=== PATIENT | female | born 1940 | race Caucasian/White ===

== ENCOUNTER 2017-09-22 18:54 | Emergency (ER) | payer OTHER ==
--- NOTE | 2017-09-22 20:48 | RAD REPORT ---
EXAM DESCRIPTION: RAD - Forearm Left - 09/22/2017 8:11 pm CLINICAL HISTORY: Deformity;Pain COMPARISON: None FINDINGS: Fracture of the distal radial metaphysis is noted with mild impaction and lateral translat ion. Ulnar styloid fracture is also suspected. A dislocation is not seen.
[2017-09-22] MEDS ORDERED: FENTANYL CITR 100 MCG/2 ML ONE (21:27)
--- NOTE | 2017-09-22 21:36 | ER ---
Nurse's Notes [facility] Name: Toya Kaur Age: 77 yrs Sex: Female : 1940 Arrival Date: 09/22/2017 Time: 18:57 Bed 20 Private MD: out of town, doctor Diagnosis: Fall on same level from slipping, tripping and stumbling;Unspecified fracture of left forearm;Tachycardia, unspecified Presentation: 09/22 19:01 Presenting complaint: Patient states: "My drive way is uneven and I just tripped over a aj1 crack and fell" Reports left arm pain. 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 Care prior to arrival: None. Mechanism of Injury: Fall from standing position. Trauma event details: Injury occurred in the [facility]. 19:01 Acuity: WILMER 3 aj1 19:01 Method Of Arrival: Ambulatory aj1 19:06 Transition of care: patient was not received from another setting of care. Onset of aj1 symptoms was September 22, 2017. Risk Assessment: Do you want to hurt yourself or someone else? Patient reports no desire to harm self or others. Initial Sepsis Screen: Does the patient meet any 2 criteria? No. Patient's initial sepsis screen is negative. Does the patient have a suspected source of infection? No. Patient's initial sepsis screen is negative. Trauma Activation: Not Applicable Physician: ED Physician; Name: ; Notified At: ; Arrived At: Physician: General Surgeon; Name: ; Notified At: ; Arrived At: Physician: Radiology; Name: ; Notified At: ; Arrived At: Physician: Respiratory; Name: ; Notified At: ; Arrived At: Physician: Lab; Name: ; Notified At: ; Arrived At: Historical: - Allergies: 19:06 Latex, Natural Rubber; aj1 - Home Meds: 19:10 gabapentin 600 mg oral tab 1 tab 3 times per day [Active]; doxepin 75 mg Oral cap 1 cap aj1 2 times per day [Active]; losartan-hydrochlorothiazide 100-12.5 mg oral tab 1 tab once daily [Active]; simvastatin 40 mg Oral tab 1 tab once daily [Active]; levothyroxine 75 mcg tab 1 tab once daily [Active]; furosemide 40 mg Oral tab 1 tab once daily [Active]; latanoprost ophthalmic ophthalmic [Active]; aspirin 81 mg Oral chew 1 tab once daily [Active]; - PMHx: 19:10 Hyperlipidemia; Hypertension; Hypothyroidism; aj1 - Immunization history: Last tetanus immunization: unknown. - Social history:: Smoking status: Patient/guardian denies using tobacco. - Ebola Screening: : Patient denies travel to an Ebola-affected area in the 21 days before illness onset. Screenin:01 Abuse screen: Denies threats or abuse. Denies injuries from another. Tuberculosis aj1 screening: No symptoms or risk factors identified. 19:17 Fall Risk Fall in past 12 months (25 points). No IV (0 pts). Ambulatory Aid- None/Bed jd3 Rest/Nurse Assist (0 pts). Gait- Normal/Bed Rest/Wheelchair (0 pts) Mental Status- Oriented to own ability (0 pts). Total Dos Santos Fall Scale indicates Low Risk Score (25-44 pts). Fall prevention measures have been instituted. Side Rails Up X 2 Placed close to Nursing Station Frequent Obs/Assesments occuring Family Present and informed to notify staff if they need to leave bedside. 19:17 Nutritional screening: No deficits noted. jd3 Assessment: 19:01 General: Appears in no apparent distress. uncomfortable, Behavior is calm, cooperative, aj1 appropriate for age. Pain: Complains of pain in left wrist Pain currently is 7 out of 10 on a pain scale. Neuro: Level of Consciousness is awake, alert, obeys commands. Cardiovascular: Patient's skin is warm and dry. Respiratory: Airway is patent Respiratory effort is even, unlabored, Respiratory pattern is regular, symmetrical. Musculoskeletal: Capillary refill < 3 seconds, in left fingers. Range of motion: limited in left wrist Bony deformity noted of left wrist Swelling present in left wrist. 19:17 General: Appears in no apparent distress. uncomfortable, Behavior is calm, cooperative, jd3 appropriate for age. Pain: Complains of pain in left wrist Pain currently is 7 out of 10 on a pain scale. Quality of pain is described as sharp. Neuro: Level of Consciousness is awake, alert, obeys commands, Oriented to person, place, time, situation, Appropriate for age Pupils are PERRLA. Cardiovascular: Capillary refill < 3 seconds Patient's skin is warm and dry. Respiratory: Airway is patent Respiratory effort is even, unlabored, Respiratory pattern is regular, symmetrical. GI: No signs and/or symptoms were reported involving the gastrointestinal system. : No signs and/or symptoms were reported regarding the genitourinary system. EENT: No signs and/or symptoms were reported regarding the EENT system. Derm: Skin is intact, Skin is dry, Skin is normal, Skin temperature is warm. Musculoskeletal: Capillary refill < 3 seconds, in left fingers. Range of motion: limited in left wrist Bony deformity noted of left wrist Swelling present in left wrist. 20:27 Reassessment: Patient appears in no apparent distress at this time. Patient and/or jd3 family updated on plan of care and expected duration. Pain level reassessed. Patient is alert, oriented x 3, equal unlabored respirations, skin warm/dry/pink. waiting on results of diagnostic tests. Vital Signs: 19:01 BP 116 / 71; Pulse 125; Resp 20; Temp 98.7; Pulse Ox 93% on R/A; Weight 104.33 kg (R); aj1 Height 5 ft. 6 in. (167.64 cm) (R); Pain 7/10; 20:27 BP 127 / 71; Pulse 118; Resp 19 S; Pulse Ox 97% on R/A; jd3 21:34 BP 125 / 84; Pulse 119; Resp 19 S; Pulse Ox 95% on R/A; jd3 19:01 Body Mass Index 37.12 (104.33 kg, 167.64 cm) aj1 Cindy Coma Score: 19:01 Eye Response: spontaneous(4). Verbal Response: oriented(5). Motor Response: obeys aj1 commands(6). Total: 15. Trauma Score (Adult): 19:01 Eye Response: spontaneous(1); Verbal Response: oriented(1); Motor Response: obeys aj1 commands(2); Systolic BP: > 89 mm Hg(4); Respiratory Rate: 10 to 29 per min(4); Gilbert Score: 15; Trauma Score: 12 ED Course: 18:57 Patient arrived in ED. mr 18:57 out of town, doctor is Private Physician. mr 19:01 Patient has correct armband on for positive identification. aj1 19:04 Triage completed. aj1 19:06 Arm band placed on Patient placed in an exam room. aj1 19:08 Taya Estrada FNP-C is PHCP. snw 19:08 Kris Brice MD is Attending Physician. snw 19:09 Timmy Lopez, RN is Primary Nurse. jd3 20:08 X-ray completed. Portable x-ray completed in exam room. Patient tolerated procedure jb2 well. 20:12 Forearm Left XRAY In Process Unspecified. EDMS 21:34 No provider procedures requiring assistance completed. Patient did not have IV access jd3 during this emergency room visit. 21:35 Martínez Cochran MD is Referral Physician. snw 21:35 Orthoglass splint: Sugar tong splint applied on left arm. placed by [employer]. jd3 Administered Medications: 21:33 Drug: fentaNYL (PF) 50 mcg Route: IM; Site: right deltoid; jd3 21:53 Follow up: Response: No adverse reaction jd3 Outcome: 21:35 Discharge ordered by MD. snw 21:57 Discharged to home ambulatory, with family. jd3 21:57 Condition: stable 21:57 Discharge instructions given to patient, family, Instructed on discharge instructions, follow up and referral plans. medication usage, Demonstrated understanding of instructions, follow-up care, medications, Prescriptions given X 2. 21:58 Patient left the ED. jd3 Signatures: Dispatcher [employer] EDMS Leslie Gomez, RN RN aj1 Taya Estrada FNP-C FNP-Sydni Cruz Mayela Mendozae jb2 Timmy Lopez, RN RN jd3
--- NOTE | 2017-09-22 21:36 | EDPHYS ---
Physician Documentation [facility] Name: Toya Kaur Age: 77 yrs Sex: Female : 1940 Arrival Date: 09/22/2017 Time: 18:57 Bed 20 Private MD: out of town, doctor ED Physician Kris Brice HPI: 09/22 19:59 This 77 yrs old Female presents to ER via Ambulatory with complaints of Fall snw Injury, Wrist Injury. 19:59 Details of fall: The patient fell from an upright position, while walking. Onset: The snw symptoms/episode began/occurred suddenly, just prior to arrival. Associated injuries: The patient sustained left arm, contusion, decreased range of motion, deformity, painful injury, swelling. Severity of symptoms: At their worst the symptoms were moderate. The patient has not experienced similar symptoms in the past. Historical: - Allergies: 19:06 Latex, Natural Rubber; aj1 - Home Meds: 19:10 gabapentin 600 mg oral tab 1 tab 3 times per day [Active]; doxepin 75 mg Oral cap 1 cap aj1 2 times per day [Active]; losartan-hydrochlorothiazide 100-12.5 mg oral tab 1 tab once daily [Active]; simvastatin 40 mg Oral tab 1 tab once daily [Active]; levothyroxine 75 mcg tab 1 tab once daily [Active]; furosemide 40 mg Oral tab 1 tab once daily [Active]; latanoprost ophthalmic ophthalmic [Active]; aspirin 81 mg Oral chew 1 tab once daily [Active]; - PMHx: 19:10 Hyperlipidemia; Hypertension; Hypothyroidism; aj1 - Immunization history: Last tetanus immunization: unknown. - Social history:: Smoking status: Patient/guardian denies using tobacco. - Ebola Screening: : Patient denies travel to an Ebola-affected area in the 21 days before illness onset. ROS: 19:58 Constitutional: Negative for fever, chills, and weight loss, Eyes: Negative for injury, snw pain, redness, and discharge, ENT: Negative for injury, pain, and discharge, Neck: Negative for injury, pain, and swelling, Cardiovascular: Negative for chest pain, palpitations, and edema, Respiratory: Negative for shortness of breath, cough, wheezing, and pleuritic chest pain, Abdomen/GI: Negative for abdominal pain, nausea, vomiting, diarrhea, and constipation, Back: Negative for injury and pain, : Negative for injury, bleeding, discharge, and swelling, Skin: Negative for injury, rash, and discoloration, Neuro: Negative for headache, weakness, numbness, tingling, and seizure. 19:58 MS/extremity: Positive for injury or acute deformity, deformity, swelling, tenderness, of the left lower arm. Exam: 19:55 Constitutional: This is a well developed, well nourished patient who is awake, alert, snw and in no acute distress. Head/Face: Normocephalic, atraumatic. Eyes: Pupils equal round and reactive to light, extra-ocular motions intact. Lids and lashes normal. Conjunctiva and sclera are non-icteric and not injected. Cornea within normal limits. Periorbital areas with no swelling, redness, or edema. ENT: Nares patent. No nasal discharge, no septal abnormalities noted. Tympanic membranes are normal and external auditory canals are clear. Oropharynx with no redness, swelling, or masses, exudates, or evidence of obstruction, uvula midline. Mucous membranes moist. Neck: Trachea midline, no thyromegaly or masses palpated, and no cervical lymphadenopathy. Supple, full range of motion without nuchal rigidity, or vertebral point tenderness. No Meningismus. Chest/axilla: Normal chest wall appearance and motion. Nontender with no deformity. No lesions are appreciated. 19:55 Respiratory: Lungs have equal breath sounds bilaterally, clear to auscultation and percussion. No rales, rhonchi or wheezes noted. No increased work of breathing, no retractions or nasal flaring. Abdomen/GI: Soft, non-tender, with normal bowel sounds. No distension or tympany. No guarding or rebound. No evidence of tenderness throughout. Back: No spinal tenderness. No costovertebral tenderness. Full range of motion. Skin: Warm, dry with normal turgor. Normal color with no rashes, no lesions, and no evidence of cellulitis. Neuro: Awake and alert, GCS 15, oriented to person, place, time, and situation. Cranial nerves II-XII grossly intact. Motor strength 5/5 in all extremities. Sensory grossly intact. Cerebellar exam normal. Normal gait. Psych: Awake, alert, with orientation to person, place and time. Behavior, mood, and affect are within normal limits. 19:55 Cardiovascular: Rate: tachycardic, Rhythm: regular, Pulses: no pulse deficits are appreciated, Edema: is not appreciated. 19:55 Musculoskeletal/extremity: Extremities: grossly normal except: noted in the left distal forearm: decreased ROM, deformity, pain, swelling, ROM: no acute changes, Pulses: are normal with no appreciated deficits, Sensation intact. Vital Signs: 19:01 BP 116 / 71; Pulse 125; Resp 20; Temp 98.7; Pulse Ox 93% on R/A; Weight 104.33 kg (R); aj1 Height 5 ft. 6 in. (167.64 cm) (R); Pain 7/10; 20:27 BP 127 / 71; Pulse 118; Resp 19 S; Pulse Ox 97% on R/A; jd3 21:34 BP 125 / 84; Pulse 119; Resp 19 S; Pulse Ox 95% on R/A; jd3 19:01 Body Mass Index 37.12 (104.33 kg, 167.64 cm) aj1 [place] Coma Score: 19:01 Eye Response: spontaneous(4). Verbal Response: oriented(5). Motor Response: obeys aj1 commands(6). Total: 15. Trauma Score (Adult): 19:01 Eye Response: spontaneous(1); Verbal Response: oriented(1); Motor Response: obeys aj1 commands(2); Systolic BP: > 89 mm Hg(4); Respiratory Rate: 10 to 29 per min(4); Cindy Score: 15; Trauma Score: 12 MDM: 19:08 Patient medically screened. snw 21:38 Data reviewed: vital signs, nurses notes. Data interpreted: Pulse oximetry: on room air snw is 95 %. Interpretation: acceptable. Counseling: I had a detailed discussion with the patient and/or guardian regarding: the historical points, exam findings, and any diagnostic results supporting the discharge/admit diagnosis, radiology results, the need for outpatient follow up, to return to the emergency department if symptoms worsen or persist or if there are any questions or concerns that arise at home. Special discussion: Based on the patient's history, exam and DX evaluation, there is no indication for emergent intervention or inpatient TX. It is understood by the patient/guardian that if the SXs persist or worsen they need to return immediately for re-evaluation. Based on the history and exam findings, there is no indication for further emergent testing or inpatient evaluation. I discussed with the patient/guardian the need to see the orthopedic surgeon for further evaluation of the symptoms. I discussed with the patient/guardian the need to see the primary care provider for further evaluation of the symptoms. 09/22 19:50 Order name: Forearm Left XRAY; Complete Time: 20:54 snw 09/22 19:50 Order name: EKG; Complete Time: 19:51 snw 09/22 19:50 Order name: EKG - Nurse/Tech; Complete Time: 20:29 snw 09/22 21:03 Order name: Sugar Tong Forearm Splint; Complete Time: 21:45 snw 09/22 21:03 Order name: Sling; Complete Time: 21:36 snw Administered Medications: 21:33 Drug: fentaNYL (PF) 50 mcg Route: IM; Site: right deltoid; jd3 21:53 Follow up: Response: No adverse reaction jd3 Disposition: 09/23 03:00 Co-signature as Attending Physician, Kris Brice MD. rn Disposition: 09/22/17 21:35 Discharged to Home. Impression: Fall on same level from slipping, tripping and stumbling, Unspecified fracture of left forearm, Tachycardia, unspecified. - Condition is Stable. - Discharge Instructions: Cast or Splint Care, Adult, Forearm Fracture, Head Injury, Adult, Fall Prevention in the Home, Cryotherapy, How to Use a Sling. - Prescriptions for Tylenol- Codeine #3 300-30 mg Oral Tablet - take 2 tablets by ORAL route every 6 hours As needed; 16 tablet. orphenadrine citrate 100 mg Oral Tablet Sustained Release - take 1 tablet by ORAL route 2 times per day As needed; 20 tablet. - Medication Reconciliation Form, Thank You Letter, Antibiotic Education, Prescription Opioid Use form. - Follow up: Martínez Cochran MD; When: 5 - 6 days; Reason: If symptoms return, Recheck today's complaints, Continuance of care. Signatures: Dispatcher [employer] Leslie Roy RN RN aj1 Taya Estrada, MEDIA RELATIONS INTERN-C MEDIA RELATIONS INTERN-Csnw Kris Brice MD MD rn Davies, Jonathon, RN RN jd3 Corrections: (The following items were deleted from the chart) 09/22 21:58 21:35 09/22/2017 21:35 Discharged to Home. Impression: Fall on same level from jd3 slipping, tripping and stumbling; Unspecified fracture of left forearm; Tachycardia, unspecified. Condition is Stable. Forms are Medication Reconciliation Form, Thank You Letter, Antibiotic Education, Prescription Opioid Use. Follow up: Martínez Cochran; When: 5 - 6 days; Reason: If symptoms return, Recheck today's complaints, Continuance of care. snw
--- NOTE | 2017-09-23 10:35 | EKG ---
Test Date: 2017-09-22 Test Time: 20:12:53 Material Planner: MARICEL MEASUREMENT RESULTS: Intervals: Rate: 115 [place]: 202 QRSD: 86 QT: 332 QTc: 459 [place]: P: 61 AZ: 202 QRS: 66 T: 39 INTERPRETIVE STATEMENTS: Sinus tachycardia Low voltage QRS Nonspecific ST and T wave abnormality Abnormal ECG No previous ECG available for comparison Electronically Signed On 09-23-17 10:34:00 CDT by Marvin Owusu
== END 2017-09-22 21:58 | disposition home or self-care (01) ==
LOC: ER 18:54
DX: S52.502A Unspecified fracture of the lower end of left radius, initial encounter for closed fracture (principal); W01.0XXA Fall on same level from slipping, tripping and stumbling without subsequent striking against object, initial encounter; Y93.9 Activity, unspecified; Y92.093 Driveway of other non-institutional residence as the place of occurrence of the external cause; R00.0 Tachycardia, unspecified; E78.5 Hyperlipidemia, unspecified; I10 Essential (primary) hypertension; E03.9 Hypothyroidism, unspecified; Z91.040 Latex allergy status
CPT/HCPCS: 73090; 93005; 96372; 99284; J3010

== ENCOUNTER 2022-06-21 08:19 | Inpatient (IN) | payer OTHER ==
--- OUTSIDE RECORDS SUMMARY | 2022-06-21 08:26 | XMS REPORT | Continuity of Care Document ---
:1940 Author Organization [facility] t Address [address] [place] [address] [address] [place] [address] Care Team Providers Name Role Phone Adilson Dhaliwal MD Primary Care Physician [phone] Divine Chan Attending Clinician Unavailable Mady Dhillon Attending Clinician Unavailable Zahra Vu Attending Clinician Unavailable Adilson Dhaliwal MD Attending Clinician Patrick Watt MD Attending Clinician ADILSON DHALIWAL Attending Clinician Unavailable LUCIUS EMERY Attending Clinician Unavailable Payers Payer Name Policy Type Policy Number Effective Date Expiration Date S jamil [place] [id number] 2022 Common HEALTHCARE 00:00:00 [facility] - [facility] AETNA MEDICARE C1 [id number] 2020 Common PPO 00:00:00 [facility] AETNA MEDICARE [id number] 2017 ADV 00:00:00 Problems Condition Condition Condition Status Onset Resolution Last Treating Co mments Source Name Details Category Date Date Treatment Clinician Date Prediabete Prediabete Disease Active 2020-0 U nivers s s 8-12 ity of 00:00: [address] Acute pain Acute pain Disease Active 2020-0 U nivers of right of right 02 ity of shoulder shoulder 00:00: [address] Urinary Urinary Disease Active 2020-0 Univers frequency frequency 8-02 ity of 00:00: [place] [facility] Chronic Chronic Disease Active Univers insomnia insomnia 7-30 ity of :: [place] [facility] Branch Hyperchole Hyperchole Disease Active U nivers sterolemia sterolemia it y of [facility] Osteoporos Osteoporos Disease Active U nivers is is ity of [facility] Eczema Eczema Disease Active Univers ity of [facility] Annual Encounter Problem Common wellness for Spirit visit wellness - [facility] [place] [id number] History of Problem Co mmon colon [facility] polyps [facility] [id number] Abnormal Problem Comm on mammogram [facility] [id number] Stage 3b Problem Comm on chronic [facility] kidney - [facility] disease (CKD) 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 stage, Medical unspecifie Center d laterality [id number] Dry eyes Problem Comm on Spirit [facility] Hypothyroi Hypothyroi Problem C ommon dism dism, Spirit unspecifie - [facility] d type [facility] Allergies, Adverse Reactions, Alerts Allergy Allergy Status Severity Reaction(s) Onset Inactive Treating Comm ents Source Name Type Date Date Clinician Latex, Propensi Active Hives Univers Natural ty to 09-24 ity of Rubber adverse 00:00: [place] reaction 00 Medical Branch LATEX, Drug Active Hives Univers NATURAL Class 09-24 ity of RUBBER 00:00: [place] 00 [facility] [place] Latex Latex Active Unknown Common Spirit [facility] Social History Social Habit Start Date Stop Date Quantity Comments Source History of Common Spirit - Tobacco Use [facility] Sex Assigned At Common Sp yadira - [facility] Alcohol intake 2020-03-21 2020-03-21 Current University of 00:00:00 00:00:00 non-drinker of [facility] alcohol Branch (finding) Tobacco use and 2017-10-05 2017-10-05 Never used Universit y of exposure 00:00:00 00:00:00 [place] [facility] [place] Smoking Status Start Date Stop Date Source Never Smoker [facility] Medications Ordered Filled Start Stop Current Ordering Indication Dosage Frequency Signature Comments Components Source Medication Medication Date Date Medication? Clinician (SIG) Name Name DOXEPIN 75 2020-02 Yes [id number] TAKE 1 U nivers mg capsule 1-09 CAPSULE BY ity of 00:00: MOUTH [place] TWICE Medical DAILY Branch DOXEPIN 75 2020-02 Yes [id number] TAKE 1 U nivers mg capsule 1-09 CAPSULE BY ity of 00:00: MOUTH [place] [address] TWICE Medical DAILY Branch MUPIROCIN 2 2020-02 Yes [id number] APPLY TO Univers % ointment 1-02 AFFECTED ity o f 00:00: AREA(S) [place] [address] THREE Medical TIMES Branch DAILY MUPIROCIN 2 2020-02 Yes [id number] APPLY TO Univers % ointment 1-02 AFFECTED ity o f 00:00: [facility](S) [place] [address] THREE Medical TIMES Branch DAILY MUPIROCIN 2 2020-02 Yes [id number] APPLY TO Univers % ointment 1-02 AFFECTED ity o f 00:00: [facility]() [place] [address] THREE Medical TIMES Branch DAILY MUPIROCIN 2 Yes [id number] APPLY TO Univers % ointment 9-21 AFFECTED ity o f 00:00: [facility]() [place] [address] THREE Medical TIMES Branch DAILY MUPIROCIN 2 2020-2020- No [id number] APPLY TO Univers % ointment 9-21 11-02 AFFECTED ity of 00:00: 00:00 [facility]() [place] 00 :00 THREE Medical TIMES Branch DAILY MUPIROCIN 2 2020-2020- No [id number] APPLY TO Univers % ointment 8-20 09-21 AFFECTED ity of 00:00: 00:00 [facility]() [place] 00 :00 [facility] Medical TIMES Branch DAILY DOXEPIN 75 Yes [id number] TAKE 1 U nivers mg capsule 6-16 CAPSULE BY ity of 00:00: MOUTH TWICE Medical DAILY Branch DOXEPIN 75 2020-0 Yes [id number] TAKE 1 U nivers mg capsule 6-16 CAPSULE BY ity of 00:00: MOUTH [place] TWICE Medical DAILY Branch DOXEPIN 75 2020-0 1- No [id number] TAKE 1 Univers mg capsule 6-16 11-09 CAPSULE BY it y of 00:00: 00:00 MOUTH [place] 00 :00 TWICE Medical DAILY Branch SIMVASTATIN 2020-0 Yes [id number] TAKE 1 Univers 40 mg 6-14 TABLET BY ity of tablet 00:00: MOUTH AT [place] BEDTIME Medical Branch LEVOTHYROXI 2020-0 Yes [id number] TAKE 1 Univers NE 75 mcg 6-14 TABLET BY ity o f tablet 00:00: MOUTH [place] EVERY DAY Medical Branch SIMVASTATIN 2020-0 Yes [id number] TAKE 1 Univers 40 mg 6-14 TABLET BY ity of tablet 00:00: MOUTH AT [place] BEDTIME Medical Branch LEVOTHYROXI 2020-0 Yes [id number] TAKE 1 Univers NE 75 mcg 6-14 TABLET BY ity o f tablet 00:00: MOUTH [place] EVERY DAY Medical Branch SIMVASTATIN 2020-0 Yes [id number] TAKE 1 Univers 40 mg 6-14 TABLET BY ity of tablet 00:00: MOUTH AT [place] BEDTIME Medical Branch LEVOTHYROXI 2020-0 Yes [id number] TAKE 1 Univers NE 75 mcg 6-14 TABLET BY ity o f tablet 00:00: MOUTH [place] EVERY DAY Medical Branch SIMVASTATIN 2020-0 Yes [id number] TAKE 1 Univers 40 mg 6-14 TABLET BY ity of tablet 00:00: MOUTH AT [place] BEDTIME Medical Branch LEVOTHYROXI 2020-0 Yes [id number] TAKE 1 Univers NE 75 mcg 6-14 TABLET BY ity o f tablet 00:00: MOUTH [place] EVERY DAY Medical Branch IBANDRONATE 2020-0 Yes [id number] TAKE 1 Univers 150 mg 2-20 TABLET BY ity of tablet 00:00: MOUTH ONE [place] MONTHLY Medical Branch LOSARTAN 2020-0 Yes [id number] TAKE HALF Univers 100 mg 2-20 A TABLET ity of tablet 00:00: BY MOUTH [place] TWICE Medical DAILY Branch FUROSEMIDE 2020-0 Yes [id number] TAKE 1 U nivers 40 mg 2-20 TABLET BY ity of tablet 00:00: MOUTH [place] EVERY DAY Medical Branch IBANDRONATE 202-0 Yes [id number] TAKE 1 Univers 150 mg 2-20 TABLET BY ity of tablet 00:00: [facility] MONTHLY Medical Branch LOSARTAN 202-0 Yes [id number] TAKE HALF Univers 100 mg 2-20 A TABLET ity of tablet 00:00: BY MOUTH [place] TWICE Medical DAILY Branch FUROSEMIDE 202-0 Yes [id number] TAKE 1 U nivers 40 mg 2-20 TABLET BY ity of tablet 00:00: MOUTH [place] EVERY DAY Medical Branch IBANDRONATE 2020-0 Yes [id number] TAKE 1 Univers 150 mg 2-20 TABLET BY ity of tablet 00:00: MOUTH [facility] MONTHLY Medical Branch LOSARTAN 2020-0 Yes [id number] TAKE HALF Univers 100 mg 2-20 A TABLET ity of tablet 00:00: BY MOUTH [place] TWICE Medical DAILY Branch FUROSEMIDE 2020-0 Yes [id number] TAKE 1 U nivers 40 mg 2-20 TABLET BY ity of tablet 00:00: [facility] EVERY DAY Medical Branch IBANDRONATE 2020-0 Yes [id number] TAKE 1 Univers 150 mg 2-20 TABLET BY ity of tablet 00:00: MOUTH [facility] MONTHLY Medical Branch LOSARTAN 2020-0 Yes [id number] TAKE HALF Univers 100 mg 2-20 A TABLET ity of tablet 00:00: BY MOUTH [place] TWICE Medical DAILY Branch FUROSEMIDE 2020-0 Yes [id number] TAKE 1 U nivers 40 mg 2-20 TABLET BY ity of tablet 00:00: [facility] EVERY DAY Medical Branch FOLIC ACID 2020-0 Yes Take by [facility] ers ORAL 03-16 mouth. ity of 10:19: [address] Branch calcium 0 Yes Take by Univers carbonate/v - mouth. ity of itamin D2 10:19: [place] (CALCIUM 49 Medical 600 + D Branch ORAL) BIOTIN ORAL Yes Take by Uni vers 03-16 mouth. ity of 10:19: [address] Branch FOLIC ACID 0 Yes Take by Univ ers ORAL - mouth. ity of 10:19: [address] Branch calcium Yes Take by Univers carbonate/v - mouth. ity of itamin D2 10:19: [place] (CALCIUM 49 Medical 600 + D Branch ORAL) BIOTIN ORAL Yes Take by Uni vers 03-16 mouth. ity of 10:19: [place] [address] Medical Branch FOLIC ACID Yes Take by Univ ers ORAL 03-16 mouth. ity of 10:19: [place] [address] Medical Branch calcium Yes Take by Univers carbonate/v 03-16 mouth. ity of itamin D2 10:19: [place] (CALCIUM 49 Medical 600 + D Branch ORAL) BIOTIN ORAL Yes Take by Uni vers 03-16 mouth. ity of 10:19: [place] [address] Medical Branch FOLIC ACID Yes Take by Univ ers ORAL 03-16 mouth. ity of 10:19: [place] [address] Medical Branch calcium Yes Take by Univers carbonate/v 03-16 mouth. ity of itamin D2 10:19: [place] (CALCIUM 49 Medical 600 + D Branch ORAL) BIOTIN ORAL Yes Take by Uni vers 03-16 mouth. ity of 10:19: [place] [address] Medical Branch CLOBETASOL Yes [id number] APPLY TO Univers 0.05 % 1-19 AFFECTED ity of cream 00:00: AREA(S) [place] 00 TWICE Medical DAILY Branch CLOBETASOL Yes [id number] APPLY TO Univers 0.05 % 1-19 AFFECTED ity of cream 00:00: AREA(S) [place] 00 TWICE Medical DAILY Branch CLOBETASOL Yes [id number] APPLY TO Univers 0.05 % 1-19 AFFECTED ity of cream 00:00: AREA(S) [place] 00 TWICE Medical DAILY Branch CLOBETASOL Yes [id number] APPLY TO Univers 0.05 % 1-19 AFFECTED ity of cream 00:00: AREA(S) [place] 00 TWICE Medical DAILY Branch ferrous 0 Yes Take by Univers sulfate 7-30 mouth ity of (IRON, 15:02: daily. [place] FERROUS 39 Medical SULFATE,) Branch 325 mg (65 mg iron) tablet aspirin 81 2019-0 Yes 81mg Take 81 mg U nivers mg EC 7-30 by mouth ity of tablet 15:02: daily. [place] 39 Medical Branch ferrous 2020-0 Yes Take by Univers sulfate 7-30 mouth ity of (IRON, 15:02: daily. [place] FERROUS 39 Medical SULFATE,) Branch 325 mg (65 mg iron) tablet aspirin 81 2019-0 Yes 81mg Take 81 mg U nivers mg EC 7-30 by mouth ity of tablet 15:02: daily. [address] Branch ferrous 2020-0 Yes Take by Univers sulfate 7-30 mouth ity of (IRON, 15:02: daily. [place] [address] Medical SULFATE,) Branch 325 mg (65 mg iron) tablet aspirin 81 2020-0 Yes 81mg Take 81 mg U nivers mg EC 7-30 by mouth ity of tablet 15:02: daily. [address] Branch ferrous 2020-0 Yes Take by Univers sulfate 7-30 mouth ity of (IRON, 15:02: daily. [place] FERROUS Medical SULFATE,) Branch 325 mg (65 mg iron) tablet aspirin 81 2020-0 Yes 81mg Take 81 mg U nivers mg EC 7-30 by mouth ity of tablet 15:02: daily. [address] HYDROcodone 2017-0 Yes 1{tbl} Take 1 Un ese -acetaminop 7-16 tablet by ity of hen 7.5-325 00:00: mouth [place] mg per 00 every 4 Medical tablet (four) Branch hours. HYDROcodone 2017-0 Yes 1{tbl} Take 1 Un ese -acetaminop 7-16 tablet by ity of hen 7.5-325 00:00: mouth [place] mg per 00 every 4 Medical tablet (four) Branch hours. HYDROcodone 2018-0 Yes 1{tbl} Take 1 Un ese -acetaminop 7-16 tablet by ity of hen 7.5-325 00:00: mouth [place] mg per 00 every 4 Medical tablet (four) Branch hours. HYDROcodone 2017-0 Yes 1{tbl} Take 1 Un ese -acetaminop 7-16 tablet by ity of hen 7.5-325 00:00: mouth [place] mg per 00 every 4 Medical tablet (four) Branch hours. latanoprost 2017-0 Yes 1[drp] Place 1 U nivers 0.005 % 6-18 Drop in ity of ophthalmic 00:00: right eye [place] drops 00 at Medical bedtime. Branch latanoprost 2017-0 Yes 1[drp] Place 1 U nivers 0.005 % 6-18 Drop in ity of ophthalmic 00:00: right eye [place] drops 00 at Medical bedtime. Branch latanoprost 2017-0 Yes 1[drp] Place 1 U nivers 0.005 % 6-18 Drop in ity of ophthalmic 00:00: right eye [place] drops 00 at Medical bedtime. Branch latanoprost Yes 1[drp] Place 1 U nivers 0.005 % 6-18 Drop in ity of ophthalmic 00:00: right eye [place] drops 00 at Medical bedtime. Branch RESTASIS Yes 1[drp] Place 1 Univ ers 0.05 % 5-21 Drop in ity of ophthalmic 00:00: both eyes [place] drops 00 every 12 Medical (twelve) Branch hours. RESTASIS Yes 1[drp] Place 1 Univ ers 0.05 % 5-21 Drop in ity of ophthalmic 00:00: both eyes [place] drops 00 every 12 Medical (twelve) Branch hours. RESTASIS Yes 1[drp] Place 1 Univ ers 0.05 % 5-21 Drop in ity of ophthalmic 00:00: both eyes [place] drops 00 every 12 Medical (twelve) Branch hours. RESTASIS Yes 1[drp] Place 1 Univ ers 0.05 % 5-21 Drop in ity of ophthalmic 00:00: both eyes [place] drops 00 every 12 Medical (twelve) Branch hours. Doxepin HCl Doxepin HCl No Doxepin 75 MG 75 MG HCl 75 MG Aspirin 81 Aspirin 81 No 1{table QD Aspirin 81 81 MG 81 MG t} 81 MG HYDROcodone HYDROcodone No HYDROcodon -Acetaminop -Acetaminop e-Acetamin hen 7.5-325 hen 7.5-325 ophen MG MG 7.5-325 MG Levothyroxi Levothyroxi No Levothyrox ne Sodium ne Sodium ine Sodium 75 MCG 75 MCG 75 MCG Latanoprost Latanoprost No Latanopros 0.005 % 0.005 % t 0.005 % Cranberry Cranberry No Cranberry Mupirocin 2 Mupirocin 2 No 1{appli TID Mupirocin % % cation_ 2 % to_affe cted_ar ea} Simvastatin Simvastatin No Simvastati 40 MG 40 MG n 40 MG Macy 3 Macy 3 No Macy 3 Mupirocin 2 Mupirocin 2 No Mupirocin % % 2 % Ibandronate Ibandronate No Ibandronat Sodium 150 Sodium 150 e Sodium MG MG 150 MG Iron Iron No Iron Restasis Restasis No Restasis 0.05 % 0.05 % 0.05 % Furosemide Furosemide No Furosemide 40 MG 40 MG 40 MG Levothyroxi Levothyroxi No Levothyrox ne Sodium ne Sodium ine Sodium 75 MCG 75 MCG 75 MCG Cranberry Cranberry No Cranberry Aspirin 81 Aspirin 81 No 1{table QD Aspirin 81 81 MG 81 MG t} 81 MG Losartan Losartan No Losartan Potassium Potassium Potassium 100 MG 100 MG 100 MG Macy 3 Macy 3 No Macy 3 Latanoprost Latanoprost No Latanopros 0.005 % 0.005 % t 0.005 % Doxepin HCl Doxepin HCl No Doxepin 75 MG 75 MG HCl 75 MG Simvastatin Simvastatin No Simvastati 40 MG 40 MG n 40 MG HYDROcodone HYDROcodone No HYDROcodon -Acetaminop -Acetaminop e-Acetamin hen 7.5-325 hen 7.5-325 ophen MG MG 7.5-325 MG Clobetasol Clobetasol No Clobetasol Propionate Propionate Propionate 0.05 % 0.05 % 0.05 % Iron Iron No Iron Aspirin 81 Aspirin 81 No 1{table QD Aspirin 81 81 MG 81 MG t} 81 MG Latanoprost Latanoprost No Latanopros 0.005 % 0.005 % t 0.005 % HYDROcodone HYDROcodone No HYDROcodon -Acetaminop -Acetaminop e-Acetamin hen 7.5-325 hen 7.5-325 ophen MG MG 7.5-325 MG Clobetasol Clobetasol No Clobetasol Propionate Propionate Propionate 0.05 % 0.05 % 0.05 % Restasis Restasis No Restasis 0.05 % 0.05 % 0.05 % Furosemide Furosemide No Furosemide 40 MG 40 MG 40 MG Mupirocin 2 Mupirocin 2 No Mupirocin % % 2 % Ibandronate Ibandronate No Ibandronat Sodium 150 Sodium 150 e Sodium MG MG 150 MG Cranberry Cranberry No Cranberry Doxepin HCl Doxepin HCl No Doxepin 75 MG 75 MG HCl 75 MG Losartan Losartan No Losartan Potassium Potassium Potassium 100 MG 100 MG 100 MG Levothyroxi Levothyroxi No Levothyrox ne Sodium ne Sodium ine Sodium 75 MCG 75 MCG 75 MCG Macy 3 Macy 3 No Macy 3 Simvastatin Simvastatin No Simvastati 40 MG 40 MG n 40 MG Iron Iron No Iron Aspirin 81 Aspirin 81 No 1{table QD Aspirin 81 81 MG 81 MG t} 81 MG Clobetasol Clobetasol No Clobetasol Propionate Propionate Propionate 0.05 % 0.05 % 0.05 % Doxepin HCl Doxepin HCl No Doxepin 75 MG 75 MG HCl 75 MG HYDROcodone HYDROcodone No HYDROcodon -Acetaminop -Acetaminop e-Acetamin hen 7.5-325 hen 7.5-325 ophen MG MG 7.5-325 MG Restasis Restasis No Restasis 0.05 % 0.05 % 0.05 % Furosemide Furosemide No Furosemide 40 MG 40 MG 40 MG Mupirocin 2 Mupirocin 2 No Mupirocin % % 2 % Latanoprost Latanoprost No Latanopros 0.005 % 0.005 % t 0.005 % Cranberry Cranberry No Cranberry Macy 3 Macy 3 No Macy 3 Losartan Losartan No Losartan Potassium Potassium Potassium 100 MG 100 MG 100 MG Levothyroxi Levothyroxi No Levothyrox ne Sodium ne Sodium ine Sodium 75 MCG 75 MCG 75 MCG Ibandronate Ibandronate No Ibandronat Sodium 150 Sodium 150 e Sodium MG MG 150 MG Simvastatin Simvastatin No Simvastati 40 MG 40 MG n 40 MG Iron Iron No Iron Furosemide Furosemide No Furosemide 40 MG 40 MG 40 MG Latanoprost Latanoprost No Latanopros 0.005 % 0.005 % t 0.005 % HYDROcodone HYDROcodone No HYDROcodon -Acetaminop -Acetaminop e-Acetamin hen 7.5-325 hen 7.5-325 ophen MG MG 7.5-325 MG Clobetasol Clobetasol No Clobetasol Propionate Propionate Propionate 0.05 % 0.05 % 0.05 % Restasis Restasis No Restasis 0.05 % 0.05 % 0.05 % Aspirin 81 Aspirin 81 No 1{table QD Aspirin 81 81 MG 81 MG t} 81 MG Macy 3 Macy 3 No Macy 3 Ibandronate Ibandronate No Ibandronat Sodium 150 Sodium 150 e Sodium MG MG 150 MG Cranberry Cranberry No Cranberry Doxepin HCl Doxepin HCl No Doxepin 75 MG 75 MG HCl 75 MG Mupirocin 2 Mupirocin 2 No Mupirocin % % 2 % Levothyroxi Levothyroxi No Levothyrox ne Sodium ne Sodium ine Sodium 75 MCG 75 MCG 75 MCG Losartan Losartan No Losartan Potassium Potassium Potassium 100 MG 100 MG 100 MG Simvastatin Simvastatin No Simvastati 40 MG 40 MG n 40 MG Clobetasol Clobetasol No Clobetasol Propionate Propionate Propionate 0.05 % 0.05 % 0.05 % Levothyroxi Levothyroxi No Levothyrox ne Sodium ne Sodium ine Sodium 75 MCG 75 MCG 75 MCG Cranberry Cranberry No Cranberry Ibandronate Ibandronate No Ibandronat Sodium 150 Sodium 150 e Sodium MG MG 150 MG Doxepin HCl Doxepin HCl No 1{capsu BID Doxepin 75 MG 75 MG le_with HCl 75 MG _food} Iron Iron No Iron Latanoprost Latanoprost No Latanopros 0.005 % 0.005 % t 0.005 % Macy 3 Macy 3 No Macy 3 Restasis Restasis No Restasis 0.05 % 0.05 % 0.05 % Mupirocin 2 Mupirocin 2 No Mupirocin % % 2 % HYDROcodone HYDROcodone No HYDROcodon -Acetaminop -Acetaminop e-Acetamin hen 7.5-325 hen 7.5-325 ophen MG MG 7.5-325 MG Aspirin 81 Aspirin 81 No 1{table QD Aspirin 81 81 MG 81 MG t} 81 MG Simvastatin Simvastatin No 1{table QD Simvastati 40 MG 40 MG t_in_th n 40 MG e_eveni ng} Losartan Losartan No Losartan Potassium Potassium Potassium 100 MG 100 MG 100 MG Clobetasol Clobetasol No Clobetasol Propionate Propionate Propionate 0.05 % 0.05 % 0.05 % Levothyroxi Levothyroxi No Levothyrox ne Sodium ne Sodium ine Sodium 75 MCG 75 MCG 75 MCG Cranberry Cranberry No Cranberry Ibandronate Ibandronate No Ibandronat Sodium 150 Sodium 150 e Sodium MG MG 150 MG Doxepin HCl Doxepin HCl No 1{capsu BID Doxepin 75 MG 75 MG le_with HCl 75 MG _food} Iron Iron No Iron Latanoprost Latanoprost No Latanopros 0.005 % 0.005 % t 0.005 % Macy 3 Macy 3 No Macy 3 Restasis Restasis No Restasis 0.05 % 0.05 % 0.05 % Mupirocin 2 Mupirocin 2 No Mupirocin % % 2 % HYDROcodone HYDROcodone No HYDROcodon -Acetaminop -Acetaminop e-Acetamin hen 7.5-325 hen 7.5-325 ophen MG MG 7.5-325 MG Aspirin 81 Aspirin 81 No 1{table QD Aspirin 81 81 MG 81 MG t} 81 MG Simvastatin Simvastatin No 1{table QD Simvastati 40 MG 40 MG t_in_th n 40 MG e_eveni ng} Losartan Losartan No Losartan Potassium Potassium Potassium 100 MG 100 MG 100 MG Clobetasol Clobetasol No Clobetasol Propionate Propionate Propionate 0.05 % 0.05 % 0.05 % Levothyroxi Levothyroxi No Levothyrox ne Sodium ne Sodium ine Sodium 75 MCG 75 MCG 75 MCG Cranberry Cranberry No Cranberry Ibandronate Ibandronate No Ibandronat Sodium 150 Sodium 150 e Sodium MG MG 150 MG Doxepin HCl Doxepin HCl No 1{capsu BID Doxepin 75 MG 75 MG le_with HCl 75 MG _food} Iron Iron No Iron Latanoprost Latanoprost No Latanopros 0.005 % 0.005 % t 0.005 % Macy 3 Macy 3 No Macy 3 Restasis Restasis No Restasis 0.05 % 0.05 % 0.05 % Mupirocin 2 Mupirocin 2 No Mupirocin % % 2 % HYDROcodone HYDROcodone No HYDROcodon -Acetaminop -Acetaminop e-Acetamin hen 7.5-325 hen 7.5-325 ophen MG MG 7.5-325 MG Aspirin 81 Aspirin 81 No 1{table QD Aspirin 81 81 MG 81 MG t} 81 MG Simvastatin Simvastatin No 1{table QD Simvastati 40 MG 40 MG t_in_th n 40 MG e_eveni ng} Losartan Losartan No Losartan Potassium Potassium Potassium 100 MG 100 MG 100 MG Clobetasol Clobetasol No Clobetasol Propionate Propionate Propionate 0.05 % 0.05 % 0.05 % Levothyroxi Levothyroxi No Levothyrox ne Sodium ne Sodium ine Sodium 75 MCG 75 MCG 75 MCG Cranberry Cranberry No Cranberry Ibandronate Ibandronate No Ibandronat Sodium 150 Sodium 150 e Sodium MG MG 150 MG Doxepin HCl Doxepin HCl No 1{capsu BID Doxepin 75 MG 75 MG le_with HCl 75 MG _food} Iron Iron No Iron Latanoprost Latanoprost No Latanopros 0.005 % 0.005 % t 0.005 % Macy 3 Macy 3 No Macy 3 Restasis Restasis No Restasis 0.05 % 0.05 % 0.05 % Mupirocin 2 Mupirocin 2 No Mupirocin % % 2 % HYDROcodone HYDROcodone No HYDROcodon -Acetaminop -Acetaminop e-Acetamin hen 7.5-325 hen 7.5-325 ophen MG MG 7.5-325 MG Aspirin 81 Aspirin 81 No 1{table QD Aspirin 81 81 MG 81 MG t} 81 MG Simvastatin Simvastatin No 1{table QD Simvastati 40 MG 40 MG t_in_th n 40 MG e_eveni ng} Losartan Losartan No Losartan Potassium Potassium Potassium 100 MG 100 MG 100 MG Latanoprost Latanoprost No Latanopros 0.005 % 0.005 % t 0.005 % Macy 3 Macy 3 No Macy 3 Ibandronate Ibandronate No Ibandronat Sodium 150 Sodium 150 e Sodium MG MG 150 MG Levothyroxi Levothyroxi No Levothyrox ne Sodium ne Sodium ine Sodium 75 MCG 75 MCG 75 MCG Cranberry Cranberry No Cranberry Iron Iron No Iron Losartan Losartan No .5{tabl BID Losartan Potassium Potassium et} Potassium 100 MG 100 MG 100 MG Mupirocin 2 Mupirocin 2 No Mupirocin % % 2 % Restasis Restasis No Restasis 0.05 % 0.05 % 0.05 % Simvastatin Simvastatin No 1{table QD Simvastati 40 MG 40 MG t_in_th n 40 MG e_eveni ng} HYDROcodone HYDROcodone No HYDROcodon -Acetaminop -Acetaminop e-Acetamin hen 7.5-325 hen 7.5-325 ophen MG MG 7.5-325 MG Aspirin 81 Aspirin 81 No 1{table QD Aspirin 81 81 MG 81 MG t} 81 MG Clobetasol Clobetasol No Clobetasol Propionate Propionate Propionate 0.05 % 0.05 % 0.05 % Doxepin HCl Doxepin HCl No 1{capsu BID Doxepin 75 MG 75 MG le_with HCl 75 MG _food} Clobetasol Clobetasol No Clobetasol Propionate Propionate Propionate 0.05 % 0.05 % 0.05 % Levothyroxi Levothyroxi No Levothyrox ne Sodium ne Sodium ine Sodium 75 MCG 75 MCG 75 MCG Cranberry Cranberry No Cranberry Ibandronate Ibandronate No Ibandronat Sodium 150 Sodium 150 e Sodium MG MG 150 MG Doxepin HCl Doxepin HCl No 1{capsu BID Doxepin 75 MG 75 MG le_with HCl 75 MG _food} Iron Iron No Iron Latanoprost Latanoprost No Latanopros 0.005 % 0.005 % t 0.005 % Macy 3 Macy 3 No Macy 3 Restasis Restasis No Restasis 0.05 % 0.05 % 0.05 % Mupirocin 2 Mupirocin 2 No Mupirocin % % 2 % HYDROcodone HYDROcodone No HYDROcodon -Acetaminop -Acetaminop e-Acetamin hen 7.5-325 hen 7.5-325 ophen MG MG 7.5-325 MG Aspirin 81 Aspirin 81 No 1{table QD Aspirin 81 81 MG 81 MG t} 81 MG Simvastatin Simvastatin No 1{table QD Simvastati 40 MG 40 MG t_in_th n 40 MG e_eveni ng} Losartan Losartan No Losartan Potassium Potassium Potassium 100 MG 100 MG 100 MG Macy 3 Macy 3 No Levothyroxi Levothyroxi No QD ne Sodium ne Sodium 75 MCG 75 MCG Restasis Restasis No 0.05 % 0.05 % Clobetasol Clobetasol No Propionate Propionate 0.05 % 0.05 % Latanoprost Latanoprost No 0.005 % 0.005 % Ibandronate Ibandronate No Sodium 150 Sodium 150 MG MG Mupirocin 2 Mupirocin 2 No 1{appli TID % % cation_ to_affe cted_ar ea} Losartan Losartan No BID Potassium Potassium 100 MG 100 MG Doxepin HCl Doxepin HCl No 1{capsu BID 75 MG 75 MG le} Cranberry Cranberry No Simvastatin Simvastatin No 1{table QD 40 MG 40 MG t_in_th e_eveni ng} Iron Iron No HYDROcodone HYDROcodone No -Acetaminop -Acetaminop hen 7.5-325 hen 7.5-325 MG MG Furosemide Furosemide No 1{table QD 40 MG 40 MG t} Aspirin 81 Aspirin 81 No 1{table QD 81 MG 81 MG t} Macy 3 Macy 3 No Macy 3 Levothyroxi Levothyroxi No QD Levothyrox ne Sodium ne Sodium ine Sodium 75 MCG 75 MCG 75 MCG Restasis Restasis No Restasis 0.05 % 0.05 % 0.05 % Clobetasol Clobetasol No Clobetasol Propionate Propionate Propionate 0.05 % 0.05 % 0.05 % Latanoprost Latanoprost No Latanopros 0.005 % 0.005 % t 0.005 % Ibandronate Ibandronate No Ibandronat Sodium 150 Sodium 150 e Sodium MG MG 150 MG Mupirocin 2 Mupirocin 2 No 1{appli TID Mupirocin % % cation_ 2 % to_affe cted_ar ea} Losartan Losartan No BID Losartan Potassium Potassium Potassium 100 MG 100 MG 100 MG Doxepin HCl Doxepin HCl No 1{capsu BID Doxepin 75 MG 75 MG le} HCl 75 MG Cranberry Cranberry No Cranberry Simvastatin Simvastatin No 1{table QD Simvastati 40 MG 40 MG t_in_th n 40 MG e_eveni ng} Iron Iron No Iron HYDROcodone HYDROcodone No HYDROcodon -Acetaminop -Acetaminop e-Acetamin hen 7.5-325 hen 7.5-325 ophen MG MG 7.5-325 MG Furosemide Furosemide No 1{table QD Furosemide 40 MG 40 MG t} 40 MG Aspirin 81 Aspirin 81 No 1{table QD Aspirin 81 81 MG 81 MG t} 81 MG Clobetasol Clobetasol No Clobetasol Propionate Propionate Propionate 0.05 % 0.05 % 0.05 % Ibandronate Ibandronate No Ibandronat Sodium 150 Sodium 150 e Sodium MG MG 150 MG Losartan Losartan No Losartan Potassium Potassium Potassium 100 MG 100 MG 100 MG Furosemide Furosemide No Furosemide 40 MG 40 MG 40 MG Iron Iron No Iron Restasis Restasis No Restasis 0.05 % 0.05 % 0.05 % Doxepin HCl Doxepin HCl No Doxepin 75 MG 75 MG HCl 75 MG Aspirin 81 Aspirin 81 No 1{table QD Aspirin 81 81 MG 81 MG t} 81 MG HYDROcodone HYDROcodone No HYDROcodon -Acetaminop -Acetaminop e-Acetamin hen 7.5-325 hen 7.5-325 ophen MG MG 7.5-325 MG Levothyroxi Levothyroxi No Levothyrox ne Sodium ne Sodium ine Sodium 75 MCG 75 MCG 75 MCG Latanoprost Latanoprost No Latanopros 0.005 % 0.005 % t 0.005 % Cranberry Cranberry No Cranberry Mupirocin 2 Mupirocin 2 No 1{appli TID Mupirocin % % cation_ 2 % to_affe cted_ar ea} Simvastatin Simvastatin No Simvastati 40 MG 40 MG n 40 MG Macy 3 Macy 3 No Macy 3 Clobetasol Clobetasol No Clobetasol Propionate Propionate Propionate 0.05 % 0.05 % 0.05 % Ibandronate Ibandronate No Ibandronat Sodium 150 Sodium 150 e Sodium MG MG 150 MG Losartan Losartan No Losartan Potassium Potassium Potassium 100 MG 100 MG 100 MG Furosemide Furosemide No Furosemide 40 MG 40 MG 40 MG Iron Iron No Iron Restasis Restasis No Restasis 0.05 % 0.05 % 0.05 % Immunizations Ordered Filled Immunization Date Status Comments Sour e Immunization Name Name Prevnar 20 (PCV20) Prevnar 20 (PCV20) 2021-12-01 [facility] Prevnar 20 (PCV20) Prevnar 20 (PCV20) 2021-12-01 [facility] 09:[facility]00 [facility] Prevnar 20 (PCV20) Prevnar 20 (PCV20) 2021-12-01 [facility] 09:22:00 [facility] Prevnar 20 (PCV20) Prevnar 20 (PCV20) 2021-12-01 [facility] 09:22[facility]00 [facility] Prevnar 20 (PCV20) Prevnar 20 (PCV20) 2021-12-01 [facility] 09:22:00 [facility] Prevnar 20 (PCV20) Prevnar 20 (PCV20) 2021-12-01 [facility]pleted [facility] 09:22:00 [facility] FLUZONE HIGH DOSE FLUZONE HIGH DOSE 2021-12-01 Completed [facility] - OVER 65 OVER 65 09:21:00 [facility] FLUZONE HIGH DOSE FLUZONE HIGH DOSE 2021-12-01 Completed [facility] - OVER 65 OVER 65 09:21:00 [facility] FLUZONE HIGH DOSE FLUZONE HIGH DOSE 2021-12-01 Completed [facility] - OVER 65 OVER 65 09:21:00 [facility] FLUZONE HIGH DOSE FLUZONE HIGH DOSE 2021-12-01 Completed [facility] - OVER 65 OVER 65 09:21:00 [facility] FLUZONE HIGH DOSE FLUZONE HIGH DOSE 2021-12-01 Completed [facility] - OVER 65 OVER 65 09:21:00 [facility] FLUZONE HIGH DOSE FLUZONE HIGH DOSE 2021-12-01 Completed [facility] - OVER 65 OVER 65 09:21:00 [facility] Fluzone Fluzone 2020-11-30 Completed [facility] 10:20:00 [facility] Fluzone Fluzone 2020-11-30 Completed [facility] 10:20:00 [facility] Fluzone Fluzone 2020-11-30 Completed [facility] 10:20:00 [facility] Fluzone Fluzone 2020-11-30 Completed [facility] 10:20:00 [facility] Fluzone Fluzone 2020-11-30 Completed [facility] 10:20:00 [facility] Fluzone Fluzone 2020-11-30 Completed [facility] 10:20:00 [facility] Fluzone Fluzone 2020-11-30 Completed [facility] 10:20:00 [facility] Fluzone Fluzone 2020-11-30 Completed [facility] 10:20:00 [facility] Fluzone Fluzone 2020-11-30 Completed [facility] 10:20:00 [facility] Fluzone Fluzone 2020-11-30 Completed [facility] 10:20:00 [facility] Fluzone Fluzone 2020-11-30 Completed [facility] 10:20:00 [facility] Fluzone Fluzone 2020-11-30 Completed [facility] 10:20:00 [facility] Fluzone Fluzone 2020-11-30 Completed [facility] 10:20:00 [facility] Fluzone Fluzone 2020-11-30 Completed [facility] 10:20:00 [facility] Pfizer COVID-19 Pfizer COVID-19 2020-04-02 [facility] Vaccine Vaccine 10:20:00 [facility] Pfizer COVID-19 Pfizer COVID-19 2020-04-02 [facility] Vaccine Vaccine 10:20:00 [facility] Pfizer COVID-19 Pfizer COVID-19 2020-04-02 [facility] Vaccine Vaccine 10:20:00 [facility] Pfizer COVID-19 Pfizer COVID-19 2020-04-02 [facility]pleted [facility] Vaccine Vaccine 10:20:00 [facility] Pfizer COVID-19 Pfizer COVID-19 2020-04-02 [facility]pleted [facility] Vaccine Vaccine 10:20:00 [facility] Pfizer COVID-19 Pfizer COVID-19 2020-04-02 [facility]pleted [facility] Vaccine Vaccine 10:20:00 [facility] Pfizer COVID-19 Pfizer COVID-19 2020-04-02 [facility] Vaccine Vaccine 10:20:00 [facility] Pfizer COVID-19 Pfizer COVID-19 2020-04-02 [facility] Vaccine Vaccine 10:20:00 [facility] Pfizer COVID-19 Pfizer COVID-19 2020-04-02 [facility] Vaccine Vaccine 10:20:00 [facility] Pfizer COVID-19 Pfizer COVID-19 2020-04-02 [facility]ine Vaccine 10:20:00 [facility] Pfizer COVID-19 Pfizer COVID-19 2020-04-02 [facility] Vaccine Vaccine 10:20:00 [facility] Pfizer COVID-19 Pfizer COVID-19 2020-04-02 [facility] Vaccine Vaccine 10:20:00 [facility] Pfizer COVID-19 Pfizer COVID-19 2020-04-02 [facility] Vaccine Vaccine 10:20:00 [facility] Pfizer COVID-19 Pfizer COVID-19 2020-04-02 [facility] Vacc[facility] Vaccine 10:20:00 [facility] SARS-COV-2 COVID-19 2020-04-02 Completed [facility] PFIZER VACCINE 00:00:00 [facility] SARS-COV-2 COVID-19 2020-04-02 Completed [facility] PFIZER VACCINE 00:00:00 [facility] SARS-COV-2 COVID-19 2020-04-02 Completed [facility] of PFIZER VACCINE 00:00:00 [facility] SARS-COV-2 COVID-19 2020-04-02 Completed [facility] of PFIZER VACCINE 00:00:00 [facility] Pfizer COVID-19 Pfizer COVID-19 2020-03-12 Completed [facility] Vaccine Vaccine 10:20:00 [facility] Pfizer COVID-19 Pfizer COVID-19 2020-03-12 Completed [facility] Vaccine Vaccine 10:20:00 [facility] Pfizer COVID-19 Pfizer COVID-19 2020-03-12 [facility]pleted [facility] Vaccine Vaccine 10:20:00 [facility] Pfizer COVID-19 Pfizer COVID-19 2020-03-12 [facility]pleted [facility] Vaccine Vaccine 10:20:00 [facility] Pfizer COVID-19 Pfizer COVID-19 2020-03-12 [facility]pleted [facility] Vaccine Vaccine 10:20:00 [facility] Pfizer COVID-19 Pfizer COVID-19 2020-03-12 [facility]pleted [facility] Vaccine Vaccine 10:20:00 [facility] Pfizer COVID-19 Pfizer COVID-19 2020-03-12 [facility]pleted [facility] Vaccine Vaccine 10:20:00 [facility] Pfizer COVID-19 Pfizer COVID-19 2020-03-12 [facility]pleted [facility] Vaccine Vaccine 10:20:00 [facility] Pfizer COVID-19 Pfizer COVID-19 2020-03-12 [facility]pleted [facility] Vaccine Vaccine 10:20:00 [facility] Pfizer COVID-19 Pfizer COVID-19 2020-03-12 [facility]pleted [facility] Vaccine Vaccine 10:20:00 [facility] Pfizer COVID-19 Pfizer COVID-19 2020-03-12 [facility]pleted [facility] Vaccine Vaccine 10:20:00 [facility] Pfizer COVID-19 Pfizer COVID-19 2020-03-12 [facility]pleted [facility] Vaccine Vaccine 10:20:00 [facility] Pfizer COVID-19 Pfizer COVID-19 2020-03-12 [facility] Vaccine Vaccine 10:20:00 [facility] Pfizer COVID-19 Pfizer COVID-19 2020-03-12 [facility] Vaccine Vaccine 10:20:00 [facility] SARS-COV-2 COVID-19 2020-03-12 Completed [facility] PFIZER VACCINE 00:00:00 [facility] SARS-COV-2 COVID-19 2020-03-12 Completed [facility] PFIZER VACCINE 00:00:00 [facility] SARS-COV-2 COVID-19 2020-03-12 Completed [facility] PFIZER VACCINE 00:00:00 [facility] SARS-COV-2 COVID-19 2020-03-12 Completed [facility] PFIZER VACCINE 00:00:00 [facility] Influenza High Dose 2019-12-05 Completed [facility] [place] 00:00:00 [facility] Influenza High Dose 2019-12-05 Completed [facility] [place] 00:00:00 [facility] Influenza High Dose 2019-12-05 Completed [facility] 00:00:00 [facility] Influenza High Dose 2019-12-05 Completed [facility] 00:00:00 [facility] Pneumococcal 2004-12-06 Completed [facility] Polysaccharide, 00:00:00 [place] [facility] PPSV23 (PNEUMOVAX) [facility] Pneumococcal 2004-12-06 Completed [facility] Polysaccharide, 00:00:00 [place] [facility] PPSV23 (PNEUMOVAX) [facility] Pneumococcal 2004-12-06 Completed [facility] Polysaccharide, 00:00:00 [place] [facility] PPSV23 (PNEUMOVAX) [facility] Pneumococcal 2004-12-06 Completed [facility] Polysaccharide, 00:00:00 [place] [facility] PPSV23 (PNEUMOVAX) [facility] Vital Signs Vital Name Observation Time Observation Value Comments Source height 2021-12-01 08:00:00 64.5 [in_i] [facility] weight 2021-12-01 08:00:00 197.6 [lb_av] [facility] temperature 2021-12-01 08:00:00 98.4 [degF] [facility] bmi 2021-12-01 08:00:00 33.39 kg/m2 [facility] oximetry 2021-12-01 08:00:00 92 % [facility] respiratory rate 2021-12-01 08:00:00 17 /min [facility] blood pressure 2021-12-01 08:00:00 138 mm[Hg] [facility] - systolic [facility] blood pressure 2021-12-01 08:00:00 72 mm[Hg] [facility] - diastolic [facility] height 2021-12-01 08:40:00 64.5 [in_i] [facility] weight 2021-12-01 08:40:00 197.6 [lb_av] [facility] temperature 2021-12-01 08:40:00 98.4 [degF] [facility] bmi 2021-12-01 08:40:00 33.39 kg/m2 [facility] oximetry 2021-12-01 08:40:00 92 % [facility] respiratory rate 2021-12-01 08:40:00 17 /min [facility] blood pressure 2021-12-01 08:40:00 138 mm[Hg] [facility] - systolic [facility] blood pressure 2021-12-01 08:40:00 72 mm[Hg] [facility] - diastolic [facility] height 2021-08-01 08:20:00 66 [in_i] [facility] weight 2021-08-01 08:20:00 208.8 [lb_av] [facility] temperature 2021-08-01 08:20:00 97.1 [degF] [facility] bmi 2021-08-01 08:20:00 33.70 kg/m2 [facility] oximetry 2021-08-01 08:20:00 95 % [facility] respiratory rate 2021-08-01 08:20:00 16 /min [facility] blood pressure 2021-08-01 08:20:00 102 mm[Hg] Common [facility] - systolic [facility] blood pressure 2021-08-01 08:20:00 68 mm[Hg] Common [facility] - diastolic [facility] height 2021-03-31 08:00:00 66 [in_i] Common [facility] weight 2021-03-31 08:00:00 206.6 [lb_av] [facility] temperature 2021-03-31 08:00:00 96.6 [degF] Common [facility] bmi 2021-03-31 08:00:00 33.34 kg/m2 [facility] oximetry 2021-03-31 08:00:00 97 % [facility] respiratory rate 2021-03-31 08:00:00 16 /min [facility] blood pressure 2021-03-31 08:00:00 130 mm[Hg] Common [facility] - systolic [facility] blood pressure 2021-03-31 08:00:00 64 mm[Hg] Common [facility] diastolic [facility] Procedures This patient has no known procedures. Encounters Start End Encounter Admission Attending Care Care Encounter Source Date/Time Date/Time Type Type Clinicians Facility Department ID 2022-05-25 Outpatient HERMAN Chan [facility] [id number] Common 15:30:01 Divine [id number] [facility] 2022-05-24 Outpatient Dustin STJEDLC [facility] [id number] Common 15:17:01 Divine [id number] [facility] 2022-03-22 Outpatient HERMAN Dhillon [facility] [id number] Common 14:44:00 Mady [id number] [facility] 2021-11-29 Outpatient Vu, Na STLMLC [facility] [id number] Common 07:48:01 [id number] [facility] 2021-07-27 Outpatient Vu, Na STLMLC STLMLC [id number] 2 Common 15:16:01 [id number] [facility] 2021-03-16 Outpatient Vu, Na STLMLC STLMLC [id number] Common 14:04:07 [id number] [facility] 2022-03-22 2022-03-22 (TEL) STLMLC STLMLC [id number] Co mmon 00:00:00 00:00:00 [facility] 2022-03-01 2022-03-01 (TEL) STLMLC STLMLC [id number] [facility] mmon 00:00:00 00:00:00 [facility] 2021-12-08 2021-12-08 (TEL) STLMLC STLMLC [id number] Co mmon 00:00:00 00:00:00 [facility] 2021-12-01 2021-12-01 SUB ANNUAL STLMLC STLMLC [id number] Common 00:00:00 00:00:00 MCR [facility] WELLNESS - CHI VISIT [facility] 2021-12-01 2021-12-01 OFFICE STLMLC STLMLC [id number] Co mmon 00:00:00 00:00:00 VISIT [facility] PT LEVEL 3 [facility] 2021-09-13 2021-09-13 (TEL) STLMLC STLMLC [id number] Co mmon 00:00:00 00:00:00 [facility] 2021-09-05 2021-09-05 (TEL) STLMLC STLMLC [id number] Co mmon 00:00:00 00:00:00 [facility] 2021-08-01 2021-08-01 OFFICE STLMLC STLMLC [id number] Co mmon 00:00:00 00:00:00 VISIT [facility] PT - CHI LEVEL 4 [facility] 2021-04-05 2021-04-05 (TEL) [facility] [id number] Co mmon 00:00:00 00:00:00 [facility] 2021-04-01 2021-04-01 (TEL) [facility] [id number] Co mmon 00:00:00 00:00:00 [facility] 2021-03-31 2021-03-31 [facility] [id number] Co mmon 00:00:00 00:00:00 [facility]AB PT - CHI LEVEL 4 [facility] 2021-01-25 2021-01-25 Annemarie DhaliwalRUST [id number] Univers 00:00:00 00:00:00 Wondiful [facility] [id number] ity of [place] [id number] Cornelio as PROFESSIO [phone] [address] ONE 2020-12-28 2020-12-28 Annemarie WattRUST [id number] Univers 00:00:00 00:00:00 Patrick HEALTH [id number] it y of [place] [id number] Cornelio as PROFESSIO [phone] [address] ONE 2020-12-27 2020-12-27 (TEL) [facility] [id number] Co mmon 00:00:00 00:00:00 [facility] 2020-12-27 2020-12-27 OFFICE [facility] [id number] Co mmon 00:00:00 00:00:00 VISIT [facility] PT LEVEL 3 - [facility] 2020-12-21 2020-12-21 Annemarie DhaliwalRUST [id number] Univers 00:00:00 00:00:00 Wondiful [facility] [id number] [facility]y of [place] [id number] Cornelio as PROFESSIO [phone] [address] ONE 2020-11-08 2020-11-08 Annemarie Dhaliwal DCMB [id number] Univers 00:00:00 00:00:00 Wondiful [facility] [id number] [place] [id number] Cornelio as Faye [phone] [place] [address] Branch Office [facility] One 2020-05-11 2020-05-11 Outpatient Kim ISRA [facility] [id number] Univers 00:00:00 00:00:00 WONDIFUL ity o f [facility] 2020-05-04 2020-05-[address] [facility] [id number] Univers 00:00:00 00:00:00 WONDIFUL ity o f [facility] 2020-04-02 2020-04-[address] [facility] [id number] Univers 15:30:00 15:30:00 LUCIUS [facility] 2020-03-24 2020-03-[address] [facility] [id number] Univers 00:00:00 00:00:00 WONDIFUL ity o f [facility] 2020-03-18 2020-03-18 Outpatient R [facility] [id number] Univers 09:00:00 09:00:00 ity [facility] 2020-03-16 2020-03-[address] [id number] Univers 10:00:00 10:00:00 WONDIFUL ity o f [facility] 2020-03-12 2020-03-[address] [facility] [id number] Univers 16:50:00 16:50:00 LUCIUS [facility] 2019-10-06 2019-10-[address] [facility] [id number] Univers 00:00:00 00:00:00 WONDIFUL ity o f [facility] 2019-09-29 2019-09-[address] [id number] Univers 15:00:00 15:00:00 WONDIFUL ity o f [facility] 2019-09-24 2019-09-[address] [id number] Univers 08:30:00 08:30:00 WONDIFUL mariluz villagomez [facility] 2019-09-18 2019-09-18 Outpatient Kim DHALIWAL [facility] [id number] [facility] 14:45:00 14:45:00 WONDIFUL mariluz villagomez [facility] Results This patient has no known results.
[2022-06-21 08:57] LABS: Absolute Lymphocytes (CBC) 1.8 K/uL (0.7-4.9); Hematocrit 30.7 % (36.0-45.0); Lymphocytes % 20.3 % (15.3-44.8); MCV 94.9 fL (80-100); MPV 7.7 fL (7.6-11.3); RBC Red Blood Cell Count 3.23 M/uL (3.86-4.86)
--- NOTE | 2022-06-21 09:36 | RAD REPORT ---
EXAM DESCRIPTION: RAD - Chest Single View - 06/21/2022 9:29 am CLINICAL HISTORY: kidney failure Chest pain. COMPARISON: No comparisons FINDINGS: Portable technique limits examination quality. Hazy opacity is present in the right lung base suspicious for infiltrate/pneumonia. The lungs are oth erwise emphysematous. The heart is mildly prominent in size. No displaced fractures.
[2022-06-21 09:37] LABS: Specific Gravity 1.011 (1.005-1.030); Urine Bacteria 20-50 /HPF (<20); Urine Bilirubin NEGATIVE (Negative); Urine Blood 2+ (Negative); Urine Clarity Extremely Turbid (Clear); Urine Color Light-Orange (Yellow); Urine Glucose NEGATIVE (Negative); Urine Mucus Slight /HPF (None Seen); Urine Protein 1+ (Negative); Urine RBC 21-50 /HPF (None Seen); Urine Urobilinogen Normal (Normal); Urine WBC Clump Many /HPF (None Seen); Urine pH 5.5 (5.0-7.0)
[2022-06-21 09:38] LABS: ALT/SGPT 30 U/L (13-56); AST/SGOT 17 U/L (15-37); Albumin 3.8 g/dL (3.4-5.0); Alkaline Phosphatase 100 U/L (45-117); BUN Blood Urea Nitrogen 52 mg/dL (7-18); Bicarbonate 25 mEq/L (21-32); Bilirubin Total 0.3 mg/dL (0.2-1.0); Glomerular Filtration Rate 18 ml/min (=/>90); Glucose Level 87 mg/dL (74-106); Magnesium 2.4 mg/dL (1.6-2.4); NT PRO-BNP 350 pg/mL (<450); Protein, Total 7.9 g/dL (6.4-8.2); Sodium Level 139 mEq/L (136-145); Troponin High Sensitivity 10.8 pg/mL (<58.9)
[2022-06-21 09:41] LABS: Bilirubin Direct < 0.1 mg/dL (0-0.2)
--- NOTE | 2022-06-21 09:55 | ER ---
Nurse's Notes [facility] Name: Toya Kaur Age: 82 yrs Sex: Female : 1940 Arrival Date: 06/21/2022 Time: 08:19 Bed 15 Private MD: Diagnosis: Acute kidney failure, unspecified;UTI/ Urinary tract infection, site not specified;Pneumonia, unspecified organism Presentation: 06/21 08:23 Chief complaint: Patient states: Sent by Dr. Vu for decreased kidney function. Pt has ss no complaints at this time, and only had routine labs drawn Sunday. Coronavirus screen: Client denies travel out of the [place] in the last 14 days. Ebola Screen: Patient denies exposure to infectious person. Patient denies travel to an Ebola-affected area in the 21 days before illness onset. Initial Sepsis Screen: Does the patient meet any 2 criteria? No. Patient's initial sepsis screen is negative. Does the patient have a suspected source of infection? No. Patient's initial sepsis screen is negative. Risk Assessment: Do you want to hurt yourself or someone else? Patient reports no desire to harm self or others. Onset of symptoms is unknown. 08:23 Method Of Arrival: Ambulatory ss 08:23 Acuity: WILMER 3 ss Historical: - Allergies: 08:37 Latex, Natural Rubber; ss - PMHx: 08:37 Hyperlipidemia; Hypertension; Hypothyroidism; ss Screenin:00 [facility] ED Fall Risk Assessment (Adult) History of falling in the last 3 months, aa5 including since admission No falls in past 3 months (0 pts) Confusion or Disorientation No (0 pts) Intoxicated or Sedated No (0 pts) Impaired Gait No (0 pts) Mobility Assist Device Used No (0 pt) Altered Elimination No (0 pt) Score/Fall Risk Level 0 - 2 = Low Risk Oriented to surroundings, Maintained a safe environment, Educated pt \T\ family on fall prevention, incl call for assistance when getting out of bed. Abuse screen: Denies threats or abuse. Nutritional screening: No deficits noted. Tuberculosis screening: No symptoms or risk factors identified. Assessment: 08:50 General: Appears comfortable, Behavior is calm, cooperative. Pain: Denies pain. Neuro: aa5 Level of Consciousness is awake, alert, obeys commands, Oriented to person, place, time, situation. Cardiovascular: Patient's skin is warm and dry. Respiratory: Airway is patent Respiratory effort is even, unlabored, Respiratory pattern is regular, symmetrical. GI: No signs and/or symptoms were reported involving the gastrointestinal system. : Reports urinary frequency, pt reports frequency is at baseline. Denies burning with urination. EENT: No signs and/or symptoms were reported regarding the EENT system. Derm: Skin is pink, warm \T\ dry. Musculoskeletal: Range of motion: intact in all extremities. 09:17 Reassessment: x-ray at bedside . aa5 10:13 Reassessment: Patient is alert, oriented x 3, equal unlabored respirations, skin aa5 warm/dry/pink. 11:14 Reassessment: Patient is alert, oriented x 3, equal unlabored respirations, skin aa5 warm/dry/pink. Awaiting admission orders for room assignment, awaiting Dr. Guerrier's response about admission orders. . 12:10 Reassessment: Unsuccessful attempt to call report to admitting nurse. Report was given aa5 to CRISPIN Avalos (in ER at this time). 12:30 Reassessment: Unsuccessful attempt to call report to admitting nurse. eh3 13:34 Reassessment: Nurse to nurse report received by Sue on 4th floor. 3 Vital Signs: 08:40 BP 154 / 76; Pulse 94; Resp 17; Temp 98.3(O); Pulse Ox 98% on R/A; Weight 86.18 kg; ss Height 5 ft. 5 in. ; Pain 0/10; 10:00 BP 161 / 71; Pulse 84; Resp 17 S; Pulse Ox 97% on R/A; aa5 12:00 BP 157 / 72; Pulse 79; Resp 20; Pulse Ox 99% on R/A; eh3 13:00 BP 147 / 60; Pulse 77; Resp 18; Pulse Ox 100% on R/A; eh3 08:40 Body Mass Index 31.62 (86.18 kg, 165.1 cm) ss 08:40 Pain Scale: Adult ss ED Course: 08:20 Patient arrived in ED. ts1 08:23 Emilia Tafoya FNP-C is [facility]. kb 08:23 Galen Gilmore MD is Attending Physician. kb 08:37 Triage completed. ss 08:37 Arm band placed on right wrist. ss 08:48 Ximena Petersen, RN is Primary Nurse. aa5 08:50 Patient has correct armband on for positive identification. Bed in low position. Call aa5 light in reach. Side rails up X 1. Adult w/ patient. 08:51 Basic Metabolic Panel Sent. cm9 08:51 CBC with Diff Sent. cm9 08:51 LFT's Sent. cm9 08:51 Magnesium Sent. cm9 08:51 NT PRO-BNP Sent. cm9 08:51 Troponin HS Sent. cm9 08:51 Inserted saline lock: 20 gauge in right antecubital area, using aseptic technique. cm9 Blood collected. 08:58 EKG done, by ED staff, reviewed by Galen Gilmore MD. aa5 09:20 No provider procedures requiring assistance completed. aa5 09:30 XRAY Chest (1 view) In Process Unspecified. EDVA 09:54 Gorge Guerrier is Hospitalizing Provider. kb 10:13 First set of blood cultures drawn by me, Lactate collected and sent. aa5 10:28 Second set of blood cultures drawn by me. aa5 Administered Medications: 10:35 Drug: Rocephin IV 1 grams Route: IV; Rate: calculated rate; Site: right antecubital; aa5 10:40 Follow up: Response: No adverse reaction aa5 12:00 Follow up: Response: No adverse reaction; IV Status: Completed infusion; IV Intake: [id number] Intake: 12:00 IV: 20ml; Total: 20ml. eh3 Outcome: 09:55 Decision to Hospitalize by Provider. kb 13:54 Patient left the ED. 3 Signatures: Dispatcher [employer] EDVA Emilia Tafoya, STOCK HOUSE WORKER-C STOCK HOUSE WORKER-Ckb Ximena Petersen, RN RN aa5 Flora Worthy, CRISPIN RN ss Bailey Ndiaye RN RN eh3 Poonam Winston, CRISPIN RN cm9 Dayana Galan PAS PAS ts1
--- NOTE | 2022-06-21 09:55 | EDPHYS ---
Physician Documentation [facility] Name: Toya Kaur Age: 82 yrs Sex: Female : 1940 Arrival Date: 06/21/2022 Time: 08:19 Bed 15 Private MD: JOSESITO Physician Galen Gilmore HPI: 06/21 08:48 This 82 yrs old Female presents to ER via Ambulatory with complaints of KIDNEY PROBLEM. kb 08:48 Pt reports she had routine blood work done on Sunday, was called today to come to ER kb for decreased kidney function. Pt denies any symptoms or complaints. Onset: The symptoms/episode began/occurred today. The patient has not experienced similar symptoms in the past. The patient has been recently seen by a physician:. Historical: - Allergies: 08:37 Latex, Natural Rubber; ss - PMHx: 08:37 Hyperlipidemia; Hypertension; Hypothyroidism; ss ROS: 08:47 Constitutional: Negative for fever, chills, and weight loss. kb 08:47 All other systems are negative. Exam: 08:47 Constitutional: This is a well developed, well nourished patient who is awake, alert, kb and in no acute distress. Head/Face: Normocephalic, atraumatic. ENT: Moist Mucous membranes Cardiovascular: Regular rate and rhythm with a normal S1 and S2. No gallops, murmurs, or rubs. No pulse deficits. Respiratory: Respirations even and unlabored. No increased work of breathing. Talking in full sentences Abdomen/GI: Soft, non-tender. No distention Back: No spinal tenderness. No costovertebral tenderness. Full range of motion. Skin: Warm, dry with normal turgor. Normal color. MS/ Extremity: Pulses equal, no cyanosis. Neurovascular intact. Full, normal range of motion. Neuro: Awake and alert, GCS 15, oriented to person, place, time, and situation. Moves all extremities. Normal gait. 09:05 ECG was reviewed by the Attending Physician. kb Vital Signs: 08:40 BP 154 / 76; Pulse 94; Resp 17; Temp 98.3(O); Pulse Ox 98% on R/A; Weight 86.18 kg; ss Height 5 ft. 5 in. ; Pain 0/10; 10:00 BP 161 / 71; Pulse 84; Resp 17 S; Pulse Ox 97% on R/A; aa5 12:00 BP 157 / 72; Pulse 79; Resp 20; Pulse Ox 99% on R/A; eh3 13:00 BP 147 / 60; Pulse 77; Resp 18; Pulse Ox 100% on R/A; eh3 08:40 Body Mass Index 31.62 (86.18 kg, 165.1 cm) ss 08:40 Pain Scale: Adult ss MDM: 08:23 Patient medically screened. kb 08:47 Data reviewed: vital signs, nurses notes. kb 09:53 Differential Diagnosis acute renal failure, uti. Consideration of Admission/Observation kb Patient was admitted/placed on observation. Management of patient was discussed with the following: Hospitalist: Sharif accepts pt for admission under Dr Guerrier. Counseling: I had a detailed discussion with the patient and/or guardian regarding: the historical points, exam findings, and any diagnostic results supporting the discharge/admit diagnosis, lab results, radiology results, the need for further work-up and treatment in the hospital. 06/21 08:27 Order name: Basic Metabolic Panel; Complete Time: 09:43 kb 06/21 08:27 Order name: CBC with Diff; Complete Time: 09:04 kb 06/21 08:27 Order name: LFT's; Complete Time: 09:43 kb 06/21 08:27 Order name: Magnesium; Complete Time: 09:43 kb 06/21 08:27 Order name: NT PRO-BNP; Complete Time: 09:43 kb 06/21 08:27 Order name: Troponin HS; Complete Time: 09:43 kb 06/21 08:59 Order name: Urinalysis w/ reflexes; Complete Time: 09:40 kb 06/21 09:40 Order name: Urine Culture EDMA 06/21 09:50 Order name: Blood Culture Adult (2) kb 06/21 09:50 Order name: Lactate w/ 2H reflex if indic.; Complete Time: 10:42 kb 06/21 11:27 Order name: Urinalysis w/ reflexes EDMS 06/21 11:29 Order name: Magnesium EDMS 06/21 11:29 Order name: Phosphorus; Complete Time: 12:41 EDMS 06/21 11:29 Order name: T4 Free; Complete Time: 12:41 EDMS 06/21 11:29 Order name: Thyroid Stimulating Hormone; Complete Time: 12:41 EDMS 06/21 11:29 Order name: Basic Metabolic Panel EDMS 06/21 11:29 Order name: Basic Metabolic Panel EDMS 06/21 11:29 Order name: CBC with Automated Diff EDMS 06/21 11:29 Order name: CBC with Automated Diff EDMS 06/21 11:30 Order name: Lipid Profile EDMS 06/21 11:30 Order name: Lipid Profile EDMS 06/21 11:30 Order name: NT PRO-BNP EDMS 06/21 11:30 Order name: NT PRO-BNP EDMS 06/21 08:27 Order name: XRAY Chest (1 view); Complete Time: 09:40 kb 06/21 11:31 Order name: Thorax Wo Con; Complete Time: 12:13 EDMS 06/21 08:27 Order name: EKG; Complete Time: 08:28 kb 06/21 11:29 Order name: Heart Healthy EDMS 06/21 08:27 Order name: Cardiac monitoring; Complete Time: 08:58 kb 06/21 08:27 Order name: EKG - Nurse/Tech; Complete Time: 08:58 kb 06/21 08:27 Order name: IV Saline Lock; Complete Time: 08:51 kb 06/21 08:27 Order name: Labs collected and sent; Complete Time: 08:51 kb 06/21 08:27 Order name: O2 Per Protocol; Complete Time: 08:50 kb 06/21 08:27 Order name: O2 Sat Monitoring; Complete Time: 08:50 kb EC:05 Rate is 78 beats/min. Rhythm is regular. QRS [place] is Normal. NH interval is normal at kb 146 msec. QRS interval is normal at 82 msec. QT interval is normal at 451 msec. Administered Medications: 10:35 Drug: Rocephin IV 1 grams Route: IV; Rate: calculated rate; Site: right antecubital; aa5 10:40 Follow up: Response: No adverse reaction aa5 12:00 Follow up: Response: No adverse reaction; IV Status: Completed infusion; IV Intake: [id number] Disposition Summary: 06/21/22 09:55 Hospitalization Ordered Hospitalization Status: Inpatient Admission kb Provider: Gorge Guerrier Location: Telemetry/MedSurg (Inpatient) kb Condition: Stable kb Problem: new kb Symptoms: are unchanged kb Bed/Room Type: Standard Room Assignment: 408(06/21/22 12:05) bd Diagnosis - Acute kidney failure, unspecified kb - UTI/ Urinary tract infection, site not specified kb - Pneumonia, unspecified organism kb Forms: - Medication Reconciliation Form kb - SBAR form kb Signatures: Dispatcher [employer] EDEmilia Coppola, AUT[employer]BI[employer] SERVICE STATION ATTENDANT-C AUTOMOBILE SERVICE STATION ATTENDANT-Xiomara Irving Audri, RN RN aa5 Flora Worthy RN RN ss Bailey Ndiaye RN eh3 Corrections: (The following items were deleted from the chart) 12:05 09:55 kb bd
[2022-06-21] MEDS ORDERED: CEFTRIAXONE 1000 MG/VIAL ONE (10:38)
[2022-06-21] MEDS ORDERED: ACETAMINOPHEN 325 MG TABLET PO PRN (11:24)
[2022-06-21] MEDS ORDERED: TRAMADOL HCL 50 MG TAB PO PRN (11:24)
[2022-06-21] MEDS ORDERED: ONDANSETRON 4 MG/2 ML VIAL IV PRN (11:27)
--- NOTE | 2022-06-21 11:30 | P.HP ---
Certification for Inpatient Patient admitted to: Inpatient With expected LOS: >2 Midnights Patient will require the following post-hospital care: None Practitioner: I am a practitioner with admitting privileges, knowledge of patient current condition, hospital course, and medical plan of care. Services: Services provided to patient in accordance with Admission requirements found in Title 42 Section 412.3 of the Code of Federal Regulations Patient History Date of Service: 06/21/22 Reason for admission: Abnormal labs History of Present Illness: Patient is 82-year-old female with a past medical history significant for hyperlipidemia, hypertension, hypothyroidism who presents with complaint of abnormal labs. Patient reported that she went for routine labs with her PCP 2 days ago. Patient reported that she got a call from her PCP this morning that her kidneys functions were abnormal and patient needed to go to the ER. Patient reported associated signs and symptoms of urinary continence and frequency. Patient denies any other signs and symptoms. Symptoms are aggravated or relieved by nothing. Patient decided to present to the hospital as directed. Allergies latex Allergy (Verified 11/02/16 14:36) Rash Latex, Natural Rubber Allergy (Unverified 09/22/17 22:02) Unknown Home Medications: Biotin 10 mg PO DAILY 11/23/14 Cranberry 500 mg PO DAILY 11/23/14 Doxepin HCl 75 mg PO BID 11/23/14 Ferrous Sulfate [Iron] 325 mg PO DAILY 11/23/14 Folic Acid 0.8 mg PO DAILY 11/23/14 Furosemide [Lasix*] 40 mg PO DAILY 11/23/14 Gabapentin [Neurontin] 600 mg PO TID 11/23/14 Hydrocodone/Acetaminophen [Hydrocodone-Acetamin 10-325 mg] 1 each PO Q6HP PRN 11/23/14 Levothyroxine [Synthroid*] 75 mcg PO [id number] 11/23/14 Losartan Potassium [Cozaar] 100 mg PO DAILY 11/23/14 Simvastatin [Zocor*] 40 mg PO BEDTIME 11/23/14 Aspirin [Aspirin EC 81 MG] 81 mg PO DAILY 11/02/16 Cyclosporine [Restasis] 1 drop EACH EYE BID 11/02/16 Ibandronate Sodium 150 mg PO ONCE 11/02/16 Latanoprost Ophth [Xalatan 0.005%*] 1 drop EACH EYE DAILY 11/02/16 hydroCHLOROthiazide [Hydrochlorothiazide*] 12.5 mg PO DAILY AFTER SUPPER 11/02/16 - Past Medical/Surgical History -: HTN -: HLD -: Hypothyroidism. Past Surgical History: Reviewed- Non-Contributory - Family History Family History: Reviewed- Non-Contributory - Social History Smoking Status: Never smoker Alcohol use: No CD- Drugs: No Caffeine use: No Place of Residence: Home Review of Systems General: Unremarkable Eyes: Unremarkable ENT: Unremarkable Respiratory: Unremarkable Cardiovascular: Unremarkable Gastrointestinal: Unremarkable Genitourinary: Frequency, Incontinence Musculoskeletal: Unremarkable Integumentary: Unremarkable Neurological: Unremarkable Lymphatics: Unremarkable Physical Examination - Physical Exam General: Alert, In no apparent distress, Oriented x3, Cooperative HEENT: Atraumatic, PERRLA, Mucous membr. moist/pink, EOMI, Sclerae nonicteric Neck: Supple, 2+ carotid pulse no bruit, No LAD, Without JVD or thyroid abnormality Respiratory: Clear to auscultation bilaterally, Normal air movement Cardiovascular: No edema, Regular rate/rhythm, Normal S1 S2 Capillary refill: <2 Seconds Gastrointestinal: Normal bowel sounds, No tenderness Musculoskeletal: No clubbing, No swelling, No contractures, No tenderness Integumentary: No rashes, No significant lesion, No tenderness/swelling Neurological: Normal speech, Normal tone, Normal affect Lymphatics: No axilla or inguinal lymphadenopathy - Studies Laboratory Data (last 24 hrs) 06/21/22 08:48: WBC 8.80, Hgb 10.5 L, Hct 30.7 L, Plt Count 273 06/21/22 08:48: Sodium 139, Potassium 4.0, BUN 52 H, Creatinine 2.59 H, Glucose 87, Magnesium 2.4, Total Bilirubin 0.3, AST 17, ALT 30, Alkaline Phosphatase 100 Assessment and Plan - Plan --Acute renal failure. Patient baseline renal functions unknown. Nephrology consulted. Further management per [place]man. --Hypertension. Poorly controlled. Continue home medications and labetalol as needed. --Hyperlipidemia. Continue statin. --Hypothyroidism. Continue Synthroid. -- UTI POA. Patient placed on antibiotics. Urine cultures pending. --LAUREEN. Continue ferrous sulfate. --Peripheral neuropathy. Continue gabapentin. --Glaucoma. Continue home medications. --Class I Obesity. Likely secondary to excess calories intake. Patient counseled on weight reduction, diet and excise therapy. --DVT prophylaxis with Lovenox subQ Discharge Plan: Home Plan to discharge in: Greater than 2 days - Advance Directives Does patient have a Living Will: Yes Does patient have a Durable POA for Healthcare: Yes - Code Status/Comfort Care Code Status Assessed: Yes Physician Review: Patient Assessed, Agree with Above Assessment and Plan Critical Care: No
--- NOTE | 2022-06-21 12:10 | RAD REPORT ---
EXAM DESCRIPTION: CT - Thorax Wo Con CLINICAL HISTORY: Chest pain SOB COMPARISON: Chest Single View dated 06/21/2022 FINDINGS: Linear atelectasis is present in both lower lobes. No pulmonary nodule, mass or infiltrate seen. Prominent pericardial fat pad on the right likely causes the abnormality seen on recent chest radiograph. No pleural thickening or pleural effusion. No pneumothorax. No axillary, mediastinal or hilar adenopathy. No lytic or blastic bone lesion. No gross upper abdominal finding. All CT scans are performed using dose optimization technique as appropriate and may include automated exposure control or mA/KV adjustment according to patient size. IMPRESSION: No acute intrathoracic abnormality detected.
[2022-06-21 12:27] LABS: Thyroid Stimulating Hormone 1.63 uIU/mL (0.358-3.740)
[2022-06-21] MEDS ORDERED: LABETALOL 20 MG/4ML SYRINGE IV PRN (12:38)
[2022-06-21] MEDS ORDERED: METOPROLOL TAR 50 MG TAB ONE (14:01)
[2022-06-21] MEDS ORDERED: METOPROLOL TARTRATE 5 MG/5 ML INJ IV ONE (14:01)
--- NOTE | 2022-06-21 21:25 | P.CNS ---
Date of Consult: 06/22/22 Reason for Consult: MILENA/ CKD Requesting Physician: odalys lamb Chief Complaint: Abnormal labs History of Present Illness: Patient is 82-year-old female with a past medical history significant for hyperlipidemia, hypertension, hypothyroidism who presents with complaint of abnormal labs. Patient reported that she went for routine labs with her PCP 2 days ago. Patient reported that she got a call from her PCP this morning that her kidneys functions were abnormal and patient needed to go to the ER. Patient reported associated signs and symptoms of urinary continence and frequency. Patient denies any other signs and symptoms. Symptoms are aggravated or relieved by nothing. Patient decided to present to the hospital as directed. 08:48 This 82 yrs old Female presents to ER via Ambulatory with complaints of KIDNEY PROBLEM. kb 08:48 Pt reports she had routine blood work done on Sunday, was called today to come to ER kb for decreased kidney function. Pt denies any symptoms or complaints. Onset: The symptoms/episode began/occurred today. The patient has not experienced similar symptoms in the past. The patient has been recently seen by a physician. 08:23 Chief complaint: Patient states: Sent by Dr. Vu for decreased kidney function. Pt has ss no complaints at this time, and only had routine labs drawn Sunday. Coronavirus screen: Client denies travel out of the [place] in the last 14 days. Ebola Screen: Patient denies exposure to infectious person. Patient denies travel to an Ebola-affected area in the 21 days before illness onset. Initial Sepsis Screen: Does the patient meet any 2 criteria? No. Patient's initial sepsis screen is negative. Does the patient have a suspected source of infection? No. Patient's initial sepsis screen is negative. Risk Assessment: Do you want to hurt yourself or someone else? Patient reports no desire to harm self or others. Onset of symptoms is unknown. She states that she was told by Dr. Vu in the past that her kidneys were working at 40%. She was taken off her furosemide at the time but her urine output did not change. No difficulty with urination. She denies NSAIDs despite her history of chronic pain. Allergies latex Allergy (Verified 06/21/22 17:20) Itching/Hives/Rash Home medications list reviewed: Yes Home Medications: Cranberry 4,200 mg PO DAILY 11/23/14 Doxepin HCl 150 mg PO BEDTIME 11/23/14 Levothyroxine [Synthroid*] 75 mcg PO [id number] 11/23/14 Simvastatin [Zocor*] 40 mg PO BEDTIME 11/23/14 Aspirin [Aspirin EC 81 MG] 81 mg PO DAILY 11/02/16 Cyclosporine [Restasis] 1 drop EACH EYE BID 11/02/16 Latanoprost Ophth [Xalatan 0.005%*] 1 drop EACH EYE BEDTIME 11/02/16 Ascorbic Acid/Collagen Hydr [Collagen Skin Renewal Tab] 1 each PO DAILY 06/21/22 Bone Support 1 tab PO DAILY 06/21/22 Calcium Citrate 600 mg PO BID 06/21/22 Cholecalciferol (Vitamin D3) [Vitamin D 5,000 Iu Cap] 5,000 unit PO DAILY 06/21/22 Clobetasol [Temovate Cream 0.05%] 15 gm TP PRN PRN 06/21/22 Iron 65 mg PO DAILY 06/21/22 Losartan Potassium 50 mg PO BID 06/21/22 Multivit-Min/Iron/Folic/Lutein [Cvs Spectravite Women 50 Plus] 1 each PO DAILY 06/21/22 Mupirocin Oint [Bactroban 2% Ointment] 15 gm TP PRN PRN 06/21/22 Vit C/E/Zn/Coppr/Lutein/Zeaxan [Healthy Eyes Supervision2 Sfgl] 1 each PO BID 06/21/22 Zinc Gluconate [Zinc] 50 mg PO DAILY 06/21/22 - Past Medical/Surgical History Diabetic: No -: HTN -: HLD -: Hypothyroidism -: CKD III with Proteinuria (Dr. Perdomo) -: Nephrolithiasis -: CLBP -: back surgery x7 -: cholecystectomy -: hysterectomy -: silvia knee replacement -: carpal tunnel surgery right wrist - Family History Mother Medical History: Lung disease Sister Medical History: Cancer - Social History Alcohol use: No CD- Drugs: No Caffeine use: No Place of Residence: Home Review of Systems 10-point ROS is otherwise unremarkable Musculoskeletal: Back Pain Physical Examination Temp Pulse Resp BP Pulse Ox 97.4 F 83 18 160/65 H 94 06/21/22 20:00 06/21/22 20:00 06/21/22 20:00 06/21/22 20:00 06/21/22 20:00 General: Alert, In no apparent distress, Oriented x3, Cooperative HEENT: Atraumatic Neck: Supple Respiratory: Clear to auscultation bilaterally Cardiovascular: No edema, Regular rate/rhythm Gastrointestinal: Soft and benign, Non-distended Musculoskeletal: No clubbing, No contractures Integumentary: No rashes, No cyanosis Neurological: Normal speech Laboratory Data (last 24 hrs) 06/21/22 08:48: Phosphorus 4.0, Magnesium Cancelled 06/21/22 08:48: WBC 8.80, Hgb 10.5 L, Hct 30.7 L, Plt Count 273 06/21/22 08:48: Sodium 139, Potassium 4.0, BUN 52 H, Creatinine 2.59 H, Glucose 87, Magnesium 2.4, Total Bilirubin 0.3, AST 17, ALT 30, Alkaline Phosphatase 100 Imagings Data: EXAM DESCRIPTION: RAD - Chest Single View - 06/21/2022 9:29 am CLINICAL HISTORY: kidney failure Chest pain. COMPARISON: No comparisons FINDINGS: Portable technique limits examination quality. Hazy opacity is present in the right lung base suspicious for infiltrate/pneumonia. The lungs are otherwise emphysematous. The heart is mildly prominent in size. No displaced fractures. EXAM DESCRIPTION: CT - Thorax Wo Con CLINICAL HISTORY: Chest pain SOB COMPARISON: Chest Single View dated 06/21/2022 FINDINGS: Linear atelectasis is present in both lower lobes. No pulmonary nodule, mass or infiltrate seen. Prominent pericardial fat pad on the right likely causes the abnormality seen on recent chest radiograph. No pleural thickening or pleural effusion. No pneumothorax. No axillary, mediastinal or hilar adenopathy. No lytic or blastic bone lesion. No gross upper abdominal finding. All CT scans are performed using dose optimization technique as appropriate and may include automated exposure control or mA/KV adjustment according to patient size. IMPRESSION: No acute intrathoracic abnormality detected. Conclusions/Impression: MILENA likely due to hypovolemia CKD with Proteinuria (Baseline unclear but may have a GFR ~40) -No NSAIDs -Renal US ordered and reviewed -Gentle IVF with 1/2NS Left nephrolithiasis, non-obstructing (Largest 10mm) -Maintain hydration HTN with CKD -Continue Losartan -Start Amlodipine Anemia in chronic illness -Monitor H&H Acute infective cystitis -Follow up cultures -Continue abx CLBP -Tramadol prn Thank you kindly for the consultation
[2022-06-21] MEDS: DOXEPIN HCL 25 MG CAP PO SCH (22:51)
[2022-06-21] MEDS: LATANOPROST 0.005% 2.5ML OPTH OPTH SCH (22:51)
[2022-06-21] MEDS: NACHLORIDE 0.45% 1,000 ML IV SCH (23:03)
[2022-06-21] MEDS: LOSARTAN POTASSIUM 50 MG TABLET PO SCH (23:17)
[2022-06-21] MEDS: ATORVASTATIN 20 MG TAB PO SCH (23:59)
[2022-06-22 03:51] LABS: Absolute Lymphocytes (CBC) 2.2 K/uL (0.7-4.9); Hematocrit 30.1 % (36.0-45.0); Lymphocytes % 19.8 % (15.3-44.8); MPV 7.8 fL (7.6-11.3); RBC Red Blood Cell Count 3.14 M/uL (3.86-4.86)
[2022-06-22 04:20] LABS: Potassium 3.8 mEq/L (3.5-5.1); Uric Acid 5.9 mg/dL (2.6-6.0)
[2022-06-22] MEDS: LEVOTHYROXINE SOD 0.075 MG TAB PO SCH (05:47)
[2022-06-22 06:13] LABS: Specific Gravity 1.011 (1.005-1.030); Urine Bacteria None Seen /HPF (<20); Urine Bilirubin NEGATIVE (Negative); Urine Blood Negative (Negative); Urine Clarity Turbid (Clear); Urine Color Light-Yellow (Yellow); Urine Glucose NEGATIVE (Negative); Urine Protein NEGATIVE (Negative); Urine RBC <5 /HPF (None Seen); Urine Urobilinogen Normal (Normal); Urine WBC Clump Rare /HPF (None Seen); Urine pH 5.5 (5.0-7.0)
[2022-06-22 06:23] LABS: UR PROTEIN 17.7 mg/dL (<11.9); Urine Protein/Creatinine Ratio 0.44 ratio (<0.15)
[2022-06-22 06:40] LABS: UR MICROALBUMIN 3.8 mg/dL (< 1.9)
[2022-06-22] MEDS: LOSARTAN POTASSIUM 50 MG TABLET PO SCH ×2 (08:06→21:30)
[2022-06-22] MEDS: CEFTRIAXONE 1,000 MG in NA CHLORIDE 0.9% 50 ML IVPB SCH (08:07)
--- NOTE | 2022-06-22 08:47 | RAD REPORT ---
EXAM DESCRIPTION: US - Renal Ultrasound-Complete - 06/22/2022 12:28 am CLINICAL HISTORY: Acute renal disease/chronic renal disease COMPARISON: None FINDINGS: The right kidney measures 11 cm with a normal echotexture. The left kidney measures 10 cm with a normal echotexture. Renal calculi. Largest 10 millimeters Hydronephrosis is not seen. No gross abnormality of bladder IMPRESSION: Nonobstructing left renal calculi
[2022-06-22] MEDS ORDERED: ASPIRIN 81 MG CHEWABLE TABLET PO SCH (09:00)
[2022-06-22] MEDS ORDERED: ENOXAPARIN 30 MG/0.3 ML SQ SCH (09:00)
[2022-06-22] MEDS ORDERED: POTASSIUM CL SA 10 MEQ TAB PO ONE (09:00)
[2022-06-22] MEDS ORDERED: ZINC SULFATE 220 MG CAP PO SCH (09:00)
[2022-06-22] MEDS: AMLODIPINE 5 MG TAB PO SCH ×2 (11:39→21:29)
[2022-06-22] MEDS: NACHLORIDE 0.45% 1,000 ML IV SCH (11:41)
[2022-06-22 16:36] VITALS: BMI 32.2
--- NOTE | 2022-06-22 18:09 | P.PN ---
Subjective Date of Service: 06/22/22 Chief Complaint: Abnormal labs Patient has no complaint. She denies any pain. She denies any urinary symptoms or flank pain. Physical Examination - Vital Signs Temperature: 97.2 F Blood Pressure: 112/70 Pulse: 80 Respirations: 14 Pulse Ox (%): 100 - Studies Microbiology Data (last 24 hrs): 06/21/22 10:28 Blood - Blood Anaerobic Blood Culture - Final Assessment And Plan - Plan Physical Exam General: Alert, In no apparent distress, Oriented x3, Cooperative HEENT: Atraumatic, PERRLA, Mucous membr. moist/pink, EOMI, Sclerae nonicteric Neck: Supple, 2+ carotid pulse no bruit, No LAD, Without JVD or thyroid abnormality Respiratory: Clear to auscultation bilaterally, Normal air movement Cardiovascular: No edema, Regular rate/rhythm, Normal S1 S2 Gastrointestinal: Normal bowel sounds, No tenderness Musculoskeletal: No clubbing, No swelling, No contractures, No tenderness Integumentary: No rashes, No significant lesion, No tenderness/swelling Neurological: Normal speech, Normal tone, Normal affect Plan Acute renal failure. Patient baseline renal functions unknown. Nephrology is following IV hydrate. Further management per furniture packer. Hypertension. Continue home medications and labetalol as needed. Hyperlipidemia. Continue statin. Hypothyroidism. Continue Synthroid. UTI POA. Patient placed on antibiotics. Urine cultures pending. Blood culture shows no growth. LAUREEN. Continue ferrous sulfate. DVT prophylaxis: heparin SQ.
[2022-06-22] MEDS: DOCUSATE NA 100 MG CAP PO SCH (21:00)
[2022-06-22] MEDS: HOME MED 1 EA UNK (Cyclosporine [Restasis] Droperette) OPTH SCH (21:00)
[2022-06-22] MEDS ORDERED: CALCIUM CARBONATE 500 MG TAB PO SCH (21:00)
[2022-06-22] MEDS: OCUVITE (VIT A,C & E/LUTEIN/MINERAL) TABLET PO SCH (21:24)
[2022-06-22] MEDS: ATORVASTATIN 20 MG TAB PO SCH (21:24)
[2022-06-22] MEDS: LATANOPROST 0.005% 2.5ML OPTH OPTH SCH (21:26)
[2022-06-22] MEDS: DOXEPIN HCL 25 MG CAP PO SCH (22:54)
[2022-06-23] MEDS: HEPARIN 5000 UNIT/ML 1 ML VIAL SQ SCH ×2 (01:11→09:00)
[2022-06-23] MEDS: NACHLORIDE 0.45% 1,000 ML IV SCH (01:15)
[2022-06-23 02:16] VITALS: O2SAT 95
[2022-06-23 05:33] LABS: Potassium 3.8 mEq/L (3.5-5.1)
--- NOTE | 2022-06-23 05:53 | EKG ---
Test Date: 2022-06-21 Test Time: 08:54:41 Shipping Receiving Clerk: MAGDALENA MEASUREMENT RESULTS: Intervals: Rate: 78 NH: 146 QRSD: 82 QT: 396 QTc: [address] [place]: P: 48 NH: 146 QRS: 36 T: 74 INTERPRETIVE STATEMENTS: Normal sinus rhythm Low voltage QRS Nonspecific T wave abnormality Abnormal ECG Compared to ECG 09/22/2017 20:12:53 T-wave abnormality now present Sinus tachycardia no longer present ST (T wave) deviation no longer present Electronically Signed On 06-23-22 05:49:07 CDT by Lavon Interiano
[2022-06-23 06:29] LABS: Hepatitis B Core Ab, Total Nonreactive (Nonreactive); Hepatitis B Surface Ab - Quant 4.06 mIU/mL (<8.0); Hepatitis B surface AG Interp. Nonreactive (Nonreactive); Hepatitis C Virus Ab Nonreactive (Nonreactive)
[2022-06-23] MEDS: LEVOTHYROXINE SOD 0.075 MG TAB PO SCH (06:30)
--- NOTE | 2022-06-23 08:20 | P.DS ---
Admission Date: 06/21/22 Discharge Date: 06/23/22 Disposition: ROUTINE DISCHARGE Discharge Condition: FAIR Reason for Admission: Abnormal labs Brief History of Present Illness: Patient is 82-year-old female with a past medical history significant for hyperlipidemia, hypertension, hypothyroidism who presents with complaint of abnormal labs. Patient reported that she went for routine labs with her PCP 2 days prior. Patient reported that she got a call from her PCP that her kidneys functions were abnormal and patient needed to go to the ER. Patient reported associated signs and symptoms of urinary continence and frequency. Blood work in the ED showed elevated creatinine up to 2.59, baseline unknown. UA demonstrated UTI. Patient was hospitalized for further management. Hospital Course: Diagnosis Acute renal failure UTI Hypertension Hyperlipidemia Hypothyroidism Iron deficiency anemia Acute renal failure. Patient baseline renal functions unknown. Nephrology saw and assisted with management. Patient hydrated with IV fluid. Serum creatinine trended down to 2.39. Patient request to go home today in order to make it to another clinical appointment. Case discussed with nephrology Dr. Perdomo who is okay for patient to discharge and close follow-up as outpatient. Hypertension. Patient placed on low-dose amlodipine. Hyperlipidemia. Continued statin. Hypothyroidism. Continued Synthroid. UTI POA. Urine culture grew gram-negative rods. Patient treated with IV Rocephin. Blood culture shows no growth. Discharged with oral cefpodoxime to complete 5 days of treatment. LAUREEN. Continued ferrous sulfate. Vital Signs/Physical Exam: Temp Pulse Resp BP Pulse Ox 97.9 F 72 17 121/53 L 93 06/23/22 04:00 06/23/22 04:00 06/23/22 04:00 06/23/22 04:00 06/23/22 04:00 General: Alert, In no apparent distress, Oriented x3 HEENT: Mucous membr. moist/pink Neck: JVD not distended Respiratory: Clear to auscultation bilaterally, Normal air movement Cardiovascular: Regular rate/rhythm, Normal S1 S2 Gastrointestinal: Soft and benign, Non-distended, No tenderness Musculoskeletal: No swelling Integumentary: No rashes, No cyanosis Neurological: Normal strength at 5/5 x4 extr Laboratory Data at Discharge: WBC 11.10 thou/uL (4.3-10.9) H 06/22/22 03:27 Hgb 10.0 g/dL (12.0-15.0) L 05/04/23 03:27 Hct 30.1 % (36.0-45.0) L 06/22/22 03:27 Plt Count 256 thou/uL (152-406) 06/22/22 03:27 Sodium 140 mEq/L (136-145) 06/23/22 04:35 Potassium 3.8 mEq/L (3.5-5.1) 06/23/22 04:35 BUN 53 mg/dL (7-18) H 06/23/22 04:35 Creatinine 2.39 mg/dL (0.55-1.02) H 06/23/22 04:35 Glucose 126 mg/dL (74-106) H 06/23/22 04:35 Uric Acid 5.9 mg/dL (2.6-6.0) 06/22/22 03:27 Phosphorus 4.0 mg/dL (2.5-4.9) 06/21/22 08:48 Magnesium 2.4 mg/dL (1.6-2.4) 06/21/22 08:48 Magnesium Cancelled 06/21/22 08:48 Total Bilirubin 0.3 mg/dL (0.2-1.0) 06/21/22 08:48 AST 17 U/L (15-37) 06/21/22 08:48 ALT 30 U/L (13-56) 06/21/22 08:48 Alkaline Phosphatase 100 U/L (45-117) 06/21/22 08:48 Triglycerides 128 mg/dL (<150) 06/22/22 03:27 Cholesterol 150 mg/dL (<200) 06/22/22 03:27 HDL Cholesterol 62 mg/dL (40-60) H 06/22/22 03:27 Cholesterol/HDL Ratio 2.42 06/22/22 03:27 Home Medications: Cranberry 4,200 mg PO DAILY 11/23/14 Doxepin HCl 150 mg PO BEDTIME 11/23/14 Levothyroxine [Synthroid*] 75 mcg PO [id number] 11/23/14 Simvastatin [Zocor*] 40 mg PO BEDTIME 11/23/14 Aspirin [Aspirin EC 81 MG] 81 mg PO DAILY 11/02/16 Cyclosporine [Restasis] 1 drop EACH EYE BID 11/02/16 Latanoprost Ophth [Xalatan 0.005%*] 1 drop EACH EYE BEDTIME 11/02/16 Ascorbic Acid/Collagen Hydr [Collagen Skin Renewal Tab] 1 each PO DAILY 06/21/22 Bone Support 1 tab PO DAILY 06/21/22 Calcium Citrate 600 mg PO BID 06/21/22 Cholecalciferol (Vitamin D3) [Vitamin D 5,000 IU Cap*] 5,000 unit PO DAILY 06/21/22 Clobetasol [Temovate Cream 0.05%*] 15 gm TP PRN PRN 06/21/22 Iron 65 mg PO DAILY 06/21/22 Losartan Potassium 50 mg PO BID 06/21/22 Multivit-Min/Iron/Folic/Lutein [Cvs Spectravite Women 50 Plus] 1 each PO DAILY 06/21/22 Mupirocin Oint [Bactroban 2% Ointment*] 15 gm TP PRN PRN 06/21/22 Vit C/E/Zn/Coppr/Lutein/Zeaxan [Healthy Eyes Supervision2 Sfgl] 1 each PO BID 06/21/22 Zinc Gluconate [Zinc] 50 mg PO DAILY 06/21/22 Amlodipine [Norvasc*] 5 mg PO BID #30 tab 06/23/22 Docusate [Colace Cap*] 100 mg PO BID #60 cap 06/23/22 New Medications: Docusate [Colace Cap*] 100 mg PO BID #60 cap Amlodipine [Norvasc*] 5 mg PO BID #30 tab Diet: AHA Activity: Ad michaela Followup: Jose D Perdomo DO [ACTIVE - CAN ADMIT] - 1 Week NONE,NONE [Primary Care Provider] - Time spent managing pt's care (in minutes): 35
[2022-06-23] MEDS: CEFTRIAXONE 1,000 MG in NA CHLORIDE 0.9% 50 ML IVPB SCH (09:00)
[2022-06-23] MEDS ORDERED: COLLAGEN HYDR PO SCH (09:00)
[2022-06-23] MEDS ORDERED: ASPIRIN EC 81 MG TAB PO SCH (09:00)
[2022-06-23] MEDS ORDERED: ASCORBIC ACID PO SCH (09:00)
[2022-06-23] MEDS ORDERED: VITAMIN D 5,000 UNIT CAP PO SCH (09:00)
[2022-06-23] MEDS: HOME MED 1 EA UNK (Cyclosporine [Restasis] Droperette) OPTH SCH (09:00)
[2022-06-23] MEDS ORDERED: POTASSIUM CL SA 10 MEQ TAB PO ONE (09:00)
[2022-06-23] MEDS ORDERED: FERROUS SULFATE 325 MG TAB PO SCH (09:00)
[2022-06-23 09:10] VITALS: BP 137/61; TEMP 96.8
[2022-06-23] MEDS: AMLODIPINE 5 MG TAB PO SCH (09:42)
[2022-06-23] MEDS: LOSARTAN POTASSIUM 50 MG TABLET PO SCH (09:42)
[2022-06-23] MEDS: DOCUSATE NA 100 MG CAP PO SCH (09:42)
[2022-06-23] MEDS: OCUVITE (VIT A,C & E/LUTEIN/MINERAL) TABLET PO SCH (09:42)
[2022-06-26 19:31] LABS: Albumin, (SPE) 3.7 g/dL (3.8-4.8); Alpha-1-Globulins 0.3 g/dL (0.2-0.3); Alpha-2-Globulins 0.9 g/dL (0.5-0.9); Gamma Globulins 1.1 g/dL (0.8-1.7); INTERPRETATION REPORT
== END 2022-06-23 10:00 | disposition home or self-care (01) | DRG 683 ==
LOC: ER 08:19 → ERHOLD 11:22 → 4TH 13:50
PROVIDERS: ADMIT Internal Medicine; ATTEND Internal Medicine
DX: N17.9 Acute kidney failure, unspecified (principal); N30.00 Acute cystitis without hematuria; I12.9 Hypertensive chronic kidney disease with stage 1 through stage 4 chronic kidney disease, or unspecified chronic kidney disease; N18.30 Chronic kidney disease, stage 3 unspecified; D50.9 Iron deficiency anemia, unspecified; N20.0 Calculus of kidney; E86.1 Hypovolemia; E78.5 Hyperlipidemia, unspecified; R80.9 Proteinuria, unspecified; E03.9 Hypothyroidism, unspecified; D63.8 Anemia in other chronic diseases classified elsewhere; G62.9 Polyneuropathy, unspecified; H40.9 Unspecified glaucoma; G89.29 Other chronic pain; M54.50 Low back pain, unspecified; E66.9 Obesity, unspecified; E66.09 Other obesity due to excess calories; Z68.32 Body mass index [BMI] 32.0-32.9, adult; Z71.3 Dietary counseling and surveillance; Z79.82 Long term (current) use of aspirin; Z79.899 Other long term (current) drug therapy; Z91.040 Latex allergy status; Z90.49 Acquired absence of other specified parts of digestive tract; Z90.710 Acquired absence of both cervix and uterus; Z80.9 Family history of malignant neoplasm, unspecified
CPT/HCPCS: 36415; 71045; 71250; 76770; 80048; 80061; 80076; 81001; 82043; 82570; 83605; 83735; 83880; 84100; 84132; 84156; 84165; 84300; 84439; 84443; 84484; 84550; 85025; 86038; 86160; 86335; 86704; 86706; 86803; 87040; 87077; 87086; 87088; 87186; 87340; 87389; 93005; 96365; 99284; J0696; J1644; J1650

== ENCOUNTER 2024-06-05 15:12 | Emergency (ER) | payer OTHER ==
--- OUTSIDE RECORDS SUMMARY | 2024-06-05 15:16 | XMS REPORT | Continuity of Care Document ---
Author Name Unknown Address [address] [place] [address] [facility] [place] Address [address] [place] [address] Care Team Providers Care Home Energy Consultant Supervisor Name Role Phone Adilson Dhaliwal MD A Primary Care Physician [phone] Divine Chan Attending Clinician Unavailable Helen Chan Attending Clinician Unavailable Mady Dhillon Attending Clinician Unavailable Zahra Vu Attending Clinician Unavailable [email or web address] Attending Clinician Adilson España MD A Attending Clinician + [phone] Patrick Watt MD Attending Clinician [phone] ADILSON DHLAIWAL Attending Clinician LUCIUS Burton Attending Clinician Unavailable [email or web address] Admitting Clinician Narayan covington Payers Payer Name Policy Type Policy Number Effective Date Expirati on Date Source [facility] (MEDICARE REPLACEMENT/ADVA NTAGE - PPO) [id number] [facility] MEDICARE 53 [id number] 2022 00:00:00 [facility] AETNA MEDICARE PPO [id number] 2020 00:00:00 [facility] AETNA MEDICARE ADV [id number] 2017 00:00:00 Problems Condition Name Condition Details Condition Category Status Onset Date Resolution Date Last Treatment Date Treating Clinician Comments Source Prediabete s Prediabete s Disease Active 812 00:00: 00 [facility] Acute pain of right shoulder Acute pain of right shoulder Disease Active 8 00:00: 00 [facility] Urinary frequency Urinary frequency Disease Active 8 00:00: 00 [facility] Chronic insomnia Chronic insomnia Disease Active 09-17 00:00: 00 [facility] Hyperchole sterolemia Hyperchole sterolemia Disease Active [facility] Osteoporos is Osteoporos is Disease Active [facility] Eczema Eczema Disease Active [facility] Annual wellness visit Encounter for wellness examinatio n Problem [facility] [id number] History of colon polyps Problem [facility] [id number] Abnormal mammogram Problem [facility] [id number] Stage 3b chronic kidney disease (CKD) Problem [facility] [id number] Vitamin D deficiency Problem [facility] [id number] Calculus of gallbladde r without cholecysti tis without obstructio n Problem [facility] [id number] 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, sequela Problem [facility] Hypertensi on HTN (hypertens ion) Problem [facility] Mixed hyperlipid emia Hyperlipid emia, mixed Problem [facility] [id number] Primary open angle glaucoma, unspecifie d glaucoma stage, unspecifie d laterality Problem [facility] [id number] Dry eyes Problem [facility] Hypothyroi dism Hypothyroi dism, unspecifie d type Problem [facility] Allergies, Adverse Reactions, Alerts Allergy Name Allergy Type Status Severity Reaction(s) Onset Date Inactive Date Treating Clinician Comments Source Latex, Natural Rubber Propensi ty to adverse reaction s Active Hives 8 00:00: 00 [facility] LATEX, NATURAL RUBBER Drug Class Active Hives 2018-0 8[facility]06 00:00: [facility] Active Unknown [facility] Social History Social Habit Start Date Stop Date Quantity Comments Source History of Tobacco Use [facility] Sex Assigned At [facility] Alcohol intake 2020-03-21 00:00:00 2020-03-21 00:00:00 Current non-drinker of alcohol (finding) [facility] Tobacco use and exposure 2017-10-05 00:00:00 2017-10-05 00:00:[address] [facility] Smoking Status Start Date Stop Date Source Never Smoker [facility] Medications Ordered Medication Name Filled Medication Name Start Date Stop Date Current Medication? Ordering Clinician Indication Dosage Frequency Signature (SIG) Comments Components Source BUPivacaine HCl BUPivacaine HCl 2022-02 00:00: 00 No .5mL [facility] Celestone Soluspan (Betamethas one) Celestone Soluspan (Betamethas one) 2022-02 00:00: 00 No .5mL [facility] BUPivacaine HCl BUPivacaine HCl 2022-02 00:00: 00 No .5mL [facility] Celestone Soluspan (Betamethas one) [place] Soluspan (Betamethas one) 2022-02 00:00: 00 No .5mL [facility] BUPivacaine HCl BUPivacaine HCl 2022-02 00:00: 00 No .5mL [facility] Celestone Soluspan (Betamethas one) [place] Soluspan (Betamethas one) 2022-02 00:00: 00 No .5mL [facility] BUPivacaine HCl BUPivacaine HCl 2022-02 00:00: 00 No .5mL [facility] Celestone Soluspan (Betamethas one) [place] Soluspan (Betamethas one) 2022-02 00:00: 00 No .5mL [facility] BUPivacaine HCl BUPivacaine HCl 2022-02 00:00: 00 No .5mL [facility] Celestone Soluspan (Betamethas one) Celestone Soluspan (Betamethas one) 2022-02 00:00: 00 No .5mL [facility] BUPivacaine HCl BUPivacaine HCl 2022-02 00:00: 00 No .5mL [facility] Celestone Soluspan (Betamethas one) [place] Soluspan (Betamethas one) 2022-02 00:00: 00 No .5mL [facility] BUPivacaine HCl BUPivacaine HCl 2022-02 00:00: 00 No .5mL [facility] Celestone Soluspan (Betamethas one) [place] Soluspan (Betamethas one) 2022-02 00:00: 00 No .5mL [facility] BUPivacaine HCl BUPivacaine HCl 2022-02 00:00: 00 No .5mL [facility] Celestone Soluspan (Betamethas one) Cel[place] Soluspan (Betamethas one) 2022-02 00:00: 00 No .5mL [facility] BUPivacaine HCl BUPivacaine HCl 2022-02 00:00: 00 No .5mL [facility] Celestone Soluspan (Betamethas one) Celestone Soluspan (Betamethas one) 2022-02 00:00: 00 No .5mL [facility] FOLIC ACID ORAL 03-16 10:19: 49 Yes Take by mouth. [facility] ferrous sulfate (IRON, FERROUS SULFATE,) 325 mg (65 mg iron) tablet 09-17 15:02: 39 Yes Take by mouth daily. [facility] aspirin 81 mg EC tablet 09-17 15:02: 39 Yes 81mg Take 81 mg by mouth daily. [facility] HYDROcodone -Acetaminop hen 7.5-325 MG HYDROcodone -Acetaminop hen 7.5-325 MG No HYDROcodon e-Acetamin ophen 7.5-325 MG Furosemide 40 MG Furosemide 40 MG No 1{table t} QD Furosemide 40 MG Aspirin 81 81 MG Aspirin 81 81 MG No 1{table t} QD Aspirin 81 81 MG Clobetasol Propionate 0.05 % Clobetasol Propionate 0.05 % No Clobetasol Propionate 0.05 % Ibandronate Sodium 150 MG Ibandronate Sodium 150 MG No Ibandronat e Sodium 150 MG Losartan Potassium 100 MG Losartan Potassium 100 MG No Losartan Potassium 100 MG Iron Iron No Iron Restasis 0.05 % Restasis 0.05 % No Restasis 0.05 % Doxepin HCl 75 MG Doxepin HCl 75 MG No Doxepin HCl 75 MG Levothyroxi ne Sodium 75 MCG Levothyroxi ne Sodium 75 MCG No Levothyrox ine Sodium 75 MCG Latanoprost 0.005 % Latanoprost 0.005 % No Latanopros t 0.005 % Mupirocin 2 % Mupirocin 2 % No 1{appli cation_ to_affe cted_ar ea} TID Mupirocin 2 % Simvastatin 40 MG Simvastatin 40 MG No Simvastati n 40 MG Iron Iron No Iron Aspirin 81 81 MG Aspirin 81 81 MG No 1{table t} QD Aspirin 81 81 MG Latanoprost 0.005 % Latanoprost 0.005 % No Latanopros t 0.005 % HYDROcodone -Acetaminop hen 7.5-325 MG HYDROcodone -Acetaminop hen 7.5-325 MG No HYDROcodon e-Acetamin ophen 7.5-325 MG Clobetasol Propionate 0.05 % Clobetasol Propionate 0.05 % No Clobetasol Propionate 0.05 % Restasis 0.05 % Restasis 0.05 % No Restasis 0.05 % Furosemide 40 MG Furosemide 40 MG No Furosemide 40 MG Mupirocin 2 % Mupirocin 2 % No Mupirocin 2 % Ibandronate Sodium 150 MG Ibandronate Sodium 150 MG No Ibandronat e Sodium 150 MG Doxepin HCl 75 MG Doxepin HCl 75 MG No Doxepin HCl 75 MG Losartan Potassium 100 MG Losartan Potassium 100 MG No Losartan Potassium 100 MG Levothyroxi ne Sodium 75 MCG Levothyroxi ne Sodium 75 MCG No Levothyrox ine Sodium 75 MCG Simvastatin 40 MG Simvastatin 40 MG No Simvastati n 40 MG Clobetasol Propionate 0.05 % Clobetasol Propionate 0.05 % No Clobetasol Propionate 0.05 % Levothyroxi ne Sodium 75 MCG Levothyroxi ne Sodium 75 MCG No Levothyrox ine Sodium 75 MCG Cranberry Cranberry No Cranberry Ibandronate Sodium 150 MG Ibandronate Sodium 150 MG No Ibandronat e Sodium 150 MG Doxepin HCl 75 MG Doxepin HCl 75 MG No 1{capsu le_with _food} BID Doxepin HCl 75 MG Latanoprost 0.005 % Latanoprost 0.005 % No Latanopros t 0.005 % Restasis 0.05 % Restasis 0.05 % No Restasis 0.05 % Mupirocin 2 % Mupirocin 2 % No Mupirocin 2 % HYDROcodone -Acetaminop hen 7.5-325 MG HYDROcodone -Acetaminop hen 7.5-325 MG No HYDROcodon e-Acetamin ophen 7.5-325 MG Aspirin 81 81 MG Aspirin 81 81 MG No 1{table t} QD Aspirin 81 81 MG Simvastatin 40 MG Simvastatin 40 MG No 1{table t_in_th e_eveni ng} QD Simvastati n 40 MG Losartan Potassium 100 MG Losartan Potassium 100 MG No Losartan Potassium 100 MG Clobetasol Propionate 0.05 % Clobetasol Propionate 0.05 % No Clobetasol Propionate 0.05 % Levothyroxi ne Sodium 75 MCG Levothyroxi ne Sodium 75 MCG No Levothyrox ine Sodium 75 MCG Cranberry Cranberry No Cranberry Ibandronate Sodium 150 MG Ibandronate Sodium 150 MG No Ibandronat e Sodium 150 MG Doxepin HCl 75 MG Doxepin HCl 75 MG No 1{capsu le_with _food} BID Doxepin HCl 75 MG Latanoprost 0.005 % Latanoprost 0.005 % No Latanopros t 0.005 % Restasis 0.05 % Restasis 0.05 % No Restasis 0.05 % Mupirocin 2 % Mupirocin 2 % No Mupirocin 2 % HYDROcodone -Acetaminop hen 7.5-325 MG HYDROcodone -Acetaminop hen 7.5-325 MG No HYDROcodon e-Acetamin ophen 7.5-325 MG Aspirin 81 81 MG Aspirin 81 81 MG No 1{table t} QD Aspirin 81 81 MG Simvastatin 40 MG Simvastatin 40 MG No 1{table t_in e_eveni ng} QD Simvastati n 40 MG Losartan Potassium 100 MG Losartan Potassium 100 MG No Losartan Potassium 100 MG Clobetasol Propionate 0.05 % Clobetasol Propionate 0.05 % No Clobetasol Propionate 0.05 % Levothyroxi ne Sodium 75 MCG Levothyroxi ne Sodium 75 MCG No Levothyrox ine Sodium 75 MCG Cranberry Cranberry No Cranberry Ibandronate Sodium 150 MG Ibandronate Sodium 150 MG No Ibandronat e Sodium 150 MG Doxepin HCl 75 MG Doxepin HCl 75 MG No 1{capsu le_with _food} BID Doxepin HCl 75 MG Latanoprost 0.005 % Latanoprost 0.005 % No Latanopros t 0.005 % Restasis 0.05 % Restasis 0.05 % No Restasis 0.05 % Mupirocin 2 % Mupirocin 2 % No Mupirocin 2 % HYDROcodone -Acetaminop hen 7.5-325 MG HYDROcodone -Acetaminop hen 7.5-325 MG No HYDROcodon e-Acetamin ophen 7.5-325 MG Aspirin 81 81 MG Aspirin 81 81 MG No 1{table t} QD Aspirin 81 81 MG Simvastatin 40 MG Simvastatin 40 MG No 1{table t_in e_eveni ng} QD Simvastati n 40 MG Losartan Potassium 100 MG Losartan Potassium 100 MG No Losartan Potassium 100 MG Latanoprost 0.005 % Latanoprost 0.005 % No Latanopros t 0.005 % [place] 3 [place] 3 No [place] 3 Ibandronate Sodium 150 MG Ibandronate Sodium 150 MG No Ibandronat e Sodium 150 MG Levothyroxi ne Sodium 75 MCG Levothyroxi ne Sodium 75 MCG No Levothyrox ine Sodium 75 MCG Losartan Potassium 100 MG Losartan Potassium 100 MG No .5{tabl et} BID Losartan Potassium 100 MG Mupirocin 2 % Mupirocin 2 % No Mupirocin 2 % Restasis 0.05 % Restasis 0.05 % No Restasis 0.05 % Simvastatin 40 MG Simvastatin 40 MG No 1{table t_in_th e_eveni ng} QD Simvastati n 40 MG HYDROcodone -Acetaminop hen 7.5-325 MG HYDROcodone -Acetaminop hen 7.5-325 MG No HYDROcodon e-Acetamin ophen 7.5-325 MG Aspirin 81 81 MG Aspirin 81 81 MG No 1{table t} QD Aspirin 81 81 MG Clobetasol Propionate 0.05 % Clobetasol Propionate 0.05 % No Clobetasol Propionate 0.05 % Doxepin HCl 75 MG Doxepin HCl 75 MG No 1{capsu le_with _food} BID Doxepin HCl 75 MG Simvastatin 40 MG Simvastatin 40 MG No 1{table t_in_th e_eveni ng} QD Simvastati n 40 MG [place] 3 [place] 3 No [place] 3 Ibandronate Sodium 150 MG Ibandronate Sodium 150 MG No Ibandronat e Sodium 150 MG Clobetasol Propionate 0.05 % Clobetasol Propionate 0.05 % No Clobetasol Propionate 0.05 % Losartan Potassium 100 MG Losartan Potassium 100 MG No .5{tabl et} BID Losartan Potassium 100 MG Latanoprost 0.005 % Latanoprost 0.005 % No Latanopros t 0.005 % Levothyroxi ne Sodium 75 MCG Levothyroxi ne Sodium 75 MCG No QD Levothyrox ine Sodium 75 MCG Restasis 0.05 % Restasis 0.05 % No Restasis 0.05 % Clobetasol Propionate 0.05 % Clobetasol Propionate 0.05 % No Clobetasol Propionate 0.05 % HYDROcodone -Acetaminop hen 7.5-325 MG HYDROcodone -Acetaminop hen 7.5-325 MG No HYDROcodon e-Acetamin ophen 7.5-325 MG Aspirin 81 81 MG Aspirin 81 81 MG No 1{table t} QD Aspirin 81 81 MG Mupirocin 2 % Mupirocin 2 % No Mupirocin 2 % Doxepin HCl 75 MG Doxepin HCl 75 MG No 1{capsu le_with _food} BID Doxepin HCl 75 MG Levothyroxi ne Sodium 75 MCG Levothyroxi ne Sodium 75 MCG No Levothyrox ine Sodium 75 MCG Cranberry Cranberry No Cranberry Ibandronate Sodium 150 MG Ibandronate Sodium 150 MG No Ibandronat e Sodium 150 MG Simvastatin 40 MG Simvastatin 40 MG No 1{table t_in_th e_eveni ng} QD Simvastati n 40 MG [place] 3 [place] 3 No [place] 3 Ibandronate Sodium 150 MG Ibandronate Sodium 150 MG No Ibandronat e Sodium 150 MG Losartan Potassium 100 MG Losartan Potassium 100 MG No .5{tabl et} BID Losartan Potassium 100 MG Latanoprost 0.005 % Latanoprost 0.005 % No Latanopros t 0.005 % Levothyroxi ne Sodium 75 MCG Levothyroxi ne Sodium 75 MCG No QD Levothyrox ine Sodium 75 MCG Doxepin HCl 75 MG Doxepin HCl 75 MG No 1{capsu le_with _food} BID Doxepin HCl 75 MG Restasis 0.05 % Restasis 0.05 % No Restasis 0.05 % Clobetasol Propionate 0.05 % Clobetasol Propionate 0.05 % No Clobetasol Propionate 0.05 % HYDROcodone -Acetaminop hen 7.5-325 MG HYDROcodone -Acetaminop hen 7.5-325 MG No HYDROcodon e-Acetamin ophen 7.5-325 MG Aspirin 81 81 MG Aspirin 81 81 MG No 1{table t} QD Aspirin 81 81 MG Mupirocin 2 % Mupirocin 2 % No Mupirocin 2 % Doxepin HCl 75 MG Doxepin HCl 75 MG No 1{capsu le_with _food} BID Doxepin HCl 75 MG Latanoprost 0.005 % Latanoprost 0.005 % No Latanopros t 0.005 % Simvastatin 40 MG Simvastatin 40 MG No 1{table t_in_th e_eveni ng} QD Simvastati n 40 MG [place] 3 [place] 3 No [place] 3 Ibandronate Sodium 150 MG Ibandronate Sodium 150 MG No Ibandronat e Sodium 150 MG Losartan Potassium 100 MG Losartan Potassium 100 MG No .5{tabl et} BID Losartan Potassium 100 MG Latanoprost 0.005 % Latanoprost 0.005 % No Latanopros t 0.005 % Levothyroxi ne Sodium 75 MCG Levothyroxi ne Sodium 75 MCG No QD Levothyrox ine Sodium 75 MCG Restasis 0.05 % Restasis 0.05 % No Restasis 0.05 % Clobetasol Propionate 0.05 % Clobetasol Propionate 0.05 % No Clobetasol Propionate 0.05 % HYDROcodone -Acetaminop hen 7.5-325 MG HYDROcodone -Acetaminop hen 7.5-325 MG No HYDROcodon e-Acetamin ophen 7.5-325 MG Restasis 0.05 % Restasis 0.05 % No Restasis 0.05 % Aspirin 81 81 MG Aspirin 81 81 MG No 1{table t} QD Aspirin 81 81 MG Mupirocin 2 % Mupirocin 2 % No Mupirocin 2 % Doxepin HCl 75 MG Doxepin HCl 75 MG No 1{capsu le_with _food} BID Doxepin HCl 75 MG Mupirocin 2 % Mupirocin 2 % No Mupirocin 2 % Aspirin 81 81 MG Aspirin 81 81 MG No 1{table t} QD Aspirin 81 81 MG Healthy Eyes Supervision 2 Healthy Eyes Supervision 2 No Healthy Eyes Supervisio n 2 HYDROcodone -Acetaminop hen 7.5-325 MG HYDROcodone -Acetaminop hen 7.5-325 MG No HYDROcodon e-Acetamin ophen 7.5-325 MG Restasis 0.05 % Restasis 0.05 % No Restasis 0.05 % Simvastatin 40 MG Simvastatin 40 MG No Simvastati n 40 MG Doxepin HCl 75 MG Doxepin HCl 75 MG No Doxepin HCl 75 MG Levothyroxi ne Sodium 75 MCG Levothyroxi ne Sodium 75 MCG No Levothyrox ine Sodium 75 MCG Latanoprost 0.005 % Latanoprost 0.005 % No Latanopros t 0.005 % Zinc Gluconate 50 MG Zinc Gluconate 50 MG No 1{table t} QD Zinc Gluconate 50 MG Losartan Potassium 100 MG Losartan Potassium 100 MG No BID Losartan Potassium 100 MG Aspirin 81 81 MG Aspirin 81 81 MG No 1{table t} QD Aspirin 81 81 MG Mupirocin 2 % Mupirocin 2 % No Mupirocin 2 % amLODIPine Besylate 5 MG amLODIPine Besylate 5 MG No 1{table t} QD amLODIPine Besylate 5 MG Clobetasol Propionate 0.05 % Clobetasol Propionate 0.05 % No Clobetasol Propionate 0.05 % Simvastatin 40 MG Simvastatin 40 MG No 1{table t_in_th e_eveni ng} QD Simvastati n 40 MG Losartan Potassium 100 MG Losartan Potassium 100 MG No Losartan Potassium 100 MG Cranberry Cranberry No Cranberry Latanoprost 0.005 % Latanoprost 0.005 % No Latanopros t 0.005 % Levothyroxi ne Sodium 75 MCG Levothyroxi ne Sodium 75 MCG No Levothyrox ine Sodium 75 MCG Aspirin 81 81 MG Aspirin 81 81 MG No 1{table t} QD Aspirin 81 81 MG Mupirocin 2 % Mupirocin 2 % No Mupirocin 2 % Simvastatin 40 MG Simvastatin 40 MG No 1{table t_in_th e_eveni ng} QD Simvastati n 40 MG Restasis 0.05 % Restasis 0.05 % No Restasis 0.05 % amLODIPine Besylate 5 MG amLODIPine Besylate 5 MG No 1{table t} QD amLODIPine Besylate 5 MG Clobetasol Propionate 0.05 % Clobetasol Propionate 0.05 % No Clobetasol Propionate 0.05 % Zinc Gluconate 50 MG Zinc Gluconate 50 MG No 1{table t} QD Zinc Gluconate 50 MG Losartan Potassium 100 MG Losartan Potassium 100 MG No BID Losartan Potassium 100 MG Doxepin HCl 75 MG Doxepin HCl 75 MG No Doxepin HCl 75 MG Cranberry Cranberry No Cranberry Latanoprost 0.005 % Latanoprost 0.005 % No Latanopros t 0.005 % Levothyroxi ne Sodium 75 MCG Levothyroxi ne Sodium 75 MCG No Levothyrox ine Sodium 75 MCG Aspirin 81 81 MG Aspirin 81 81 MG No 1{table t} QD Aspirin 81 81 MG Mupirocin 2 % Mupirocin 2 % No Mupirocin 2 % Simvastatin 40 MG Simvastatin 40 MG No 1{table t_in_ e_eveni ng} QD Simvastati n 40 MG Restasis 0.05 % Restasis 0.05 % No Restasis 0.05 % amLODIPine Besylate 5 MG amLODIPine Besylate 5 MG No 1{table t} QD amLODIPine Besylate 5 MG Clobetasol Propionate 0.05 % Clobetasol Propionate 0.05 % No Clobetasol Propionate 0.05 % Zinc Gluconate 50 MG Zinc Gluconate 50 MG No 1{table t} QD Zinc Gluconate 50 MG Losartan Potassium 100 MG Losartan Potassium 100 MG No BID Losartan Potassium 100 MG Doxepin HCl 75 MG Doxepin HCl 75 MG No Doxepin HCl 75 MG Cranberry Cranberry No Cranberry Latanoprost 0.005 % Latanoprost 0.005 % No Latanopros t 0.005 % Levothyroxi ne Sodium 75 MCG Levothyroxi ne Sodium 75 MCG No Levothyrox ine Sodium 75 MCG Aspirin 81 81 MG Aspirin 81 81 MG No 1{table t} QD Aspirin 81 81 MG Mupirocin 2 % Mupirocin 2 % No Mupirocin 2 % Simvastatin 40 MG Simvastatin 40 MG No 1{table t_in_th e_eveni ng} QD Simvastati n 40 MG Restasis 0.05 % Restasis 0.05 % No Restasis 0.05 % amLODIPine Besylate 5 MG amLODIPine Besylate 5 MG No 1{table t} QD amLODIPine Besylate 5 MG Clobetasol Propionate 0.05 % Clobetasol Propionate 0.05 % No Clobetasol Propionate 0.05 % Zinc Gluconate 50 MG Zinc Gluconate 50 MG No 1{table t} QD Zinc Gluconate 50 MG Losartan Potassium 100 MG Losartan Potassium 100 MG No BID Losartan Potassium 100 MG Doxepin HCl 75 MG Doxepin HCl 75 MG No Doxepin HCl 75 MG Cranberry Cranberry No Cranberry Latanoprost 0.005 % Latanoprost 0.005 % No Latanopros t 0.005 % Levothyroxi ne Sodium 75 MCG Levothyroxi ne Sodium 75 MCG No Levothyrox ine Sodium 75 MCG Aspirin 81 81 MG Aspirin 81 81 MG No 1{table t} QD Aspirin 81 81 MG Mupirocin 2 % Mupirocin 2 % No Mupirocin 2 % Simvastatin 40 MG Simvastatin 40 MG No 1{table t_in_ e_eveni ng} QD Simvastati n 40 MG Restasis 0.05 % Restasis 0.05 % No Restasis 0.05 % amLODIPine Besylate 5 MG amLODIPine Besylate 5 MG No 1{table t} QD amLODIPine Besylate 5 MG Clobetasol Propionate 0.05 % Clobetasol Propionate 0.05 % No Clobetasol Propionate 0.05 % Zinc Gluconate 50 MG Zinc Gluconate 50 MG No 1{table t} QD Zinc Gluconate 50 MG Losartan Potassium 100 MG Losartan Potassium 100 MG No BID Losartan Potassium 100 MG Doxepin HCl 75 MG Doxepin HCl 75 MG No Doxepin HCl 75 MG Cranberry Cranberry No Cranberry Latanoprost 0.005 % Latanoprost 0.005 % No Latanopros t 0.005 % Levothyroxi ne Sodium 75 MCG Levothyroxi ne Sodium 75 MCG No Levothyrox ine Sodium 75 MCG Aspirin 81 81 MG Aspirin 81 81 MG No 1{table t} QD Aspirin 81 81 MG Mupirocin 2 % Mupirocin 2 % No Mupirocin 2 % Simvastatin 40 MG Simvastatin 40 MG No 1{table t_in_th e_eveni ng} QD Simvastati n 40 MG Restasis 0.05 % Restasis 0.05 % No Restasis 0.05 % amLODIPine Besylate 5 MG amLODIPine Besylate 5 MG No 1{table t} QD amLODIPine Besylate 5 MG Clobetasol Propionate 0.05 % Clobetasol Propionate 0.05 % No Clobetasol Propionate 0.05 % Zinc Gluconate 50 MG Zinc Gluconate 50 MG No 1{table t} QD Zinc Gluconate 50 MG Losartan Potassium 100 MG Losartan Potassium 100 MG No BID Losartan Potassium 100 MG Doxepin HCl 75 MG Doxepin HCl 75 MG No Doxepin HCl 75 MG Cranberry Cranberry No Cranberry Latanoprost 0.005 % Latanoprost 0.005 % No Latanopros t 0.005 % Latanoprost 0.005 % Latanoprost 0.005 % No Levothyroxi ne Sodium 75 MCG Levothyroxi ne Sodium 75 MCG No Levothyrox ine Sodium 75 MCG Aspirin 81 81 MG Aspirin 81 81 MG No 1{table t} QD Aspirin 81 81 MG Mupirocin 2 % Mupirocin 2 % No Mupirocin 2 % Simvastatin 40 MG Simvastatin 40 MG No 1{table t_in_th e_eveni ng} QD Simvastati n 40 MG Restasis 0.05 % Restasis 0.05 % No Restasis 0.05 % amLODIPine Besylate 5 MG amLODIPine Besylate 5 MG No 1{table t} QD amLODIPine Besylate 5 MG Clobetasol Propionate 0.05 % Clobetasol Propionate 0.05 % No Clobetasol Propionate 0.05 % Zinc Gluconate 50 MG Zinc Gluconate 50 MG No 1{table t} QD Zinc Gluconate 50 MG Losartan Potassium 100 MG Losartan Potassium 100 MG No BID Losartan Potassium 100 MG Doxepin HCl 75 MG Doxepin HCl 75 MG No Doxepin HCl 75 MG Cranberry Cranberry No Cranberry Latanoprost 0.005 % Latanoprost 0.005 % No Latanopros t 0.005 % Levothyroxi ne Sodium 75 MCG Levothyroxi ne Sodium 75 MCG No Levothyrox ine Sodium 75 MCG Aspirin 81 81 MG Aspirin 81 81 MG No 1{table t} QD Aspirin 81 81 MG Mupirocin 2 % Mupirocin 2 % No Mupirocin 2 % Simvastatin 40 MG Simvastatin 40 MG No 1{table t_in_ e_eveni ng} QD Simvastati n 40 MG Restasis 0.05 % Restasis 0.05 % No Restasis 0.05 % amLODIPine Besylate 5 MG amLODIPine Besylate 5 MG No 1{table t} QD amLODIPine Besylate 5 MG Clobetasol Propionate 0.05 % Clobetasol Propionate 0.05 % No Clobetasol Propionate 0.05 % Zinc Gluconate 50 MG Zinc Gluconate 50 MG No 1{table t} QD Zinc Gluconate 50 MG Losartan Potassium 100 MG Losartan Potassium 100 MG No BID Losartan Potassium 100 MG Doxepin HCl 75 MG Doxepin HCl 75 MG No Doxepin HCl 75 MG Cranberry Cranberry No Cranberry Latanoprost 0.005 % Latanoprost 0.005 % No Latanopros t 0.005 % Levothyroxi ne Sodium 75 MCG Levothyroxi ne Sodium 75 MCG No Levothyrox ine Sodium 75 MCG Aspirin 81 81 MG Aspirin 81 81 MG No 1{table t} QD Aspirin 81 81 MG Mupirocin 2 % Mupirocin 2 % No Mupirocin 2 % Simvastatin 40 MG Simvastatin 40 MG No 1{table t_in_ e_eveni ng} QD Simvastati n 40 MG Restasis 0.05 % Restasis 0.05 % No Restasis 0.05 % amLODIPine Besylate 5 MG amLODIPine Besylate 5 MG No 1{table t} QD amLODIPine Besylate 5 MG Clobetasol Propionate 0.05 % Clobetasol Propionate 0.05 % No Clobetasol Propionate 0.05 % Zinc Gluconate 50 MG Zinc Gluconate 50 MG No 1{table t} QD Zinc Gluconate 50 MG Losartan Potassium 100 MG Losartan Potassium 100 MG No BID Losartan Potassium 100 MG Doxepin HCl 75 MG Doxepin HCl 75 MG No Doxepin HCl 75 MG Immunizations Ordered Immunization Name Filled Immunization Name Date Status Comments Source Prevnar 20 (PCV20) Prevnar 20 (PCV20) 2021-12-01 09:22:00 Completed [facility] Prevnar 20 (PCV20) Prevnar 20 (PCV20) 2021-12-01 09:22:00 Completed [facility] Prevnar 20 (PCV20) Prevnar 20 (PCV20) 2021-12-01 09:22:00 Completed [facility] Prevnar 20 (PCV20) Prevnar 20 (PCV20) 2021-12-01 09:22:00 Completed [facility] Prevnar 20 (PCV20) Prevnar 20 (PCV20) 2021-12-01 09:22:00 Completed [facility] Prevnar 20 (PCV20) Prevnar 20 (PCV20) 2021-12-01 09:22:00 Completed [facility] Prevnar 20 (PCV20) Prevnar 20 (PCV20) 2021-12-01 09:22:00 Completed [facility] Prevnar 20 (PCV20) Prevnar 20 (PCV20) 2021-12-01 09:22:00 Completed [facility] Prevnar 20 (PCV20) Prevnar 20 (PCV20) 2021-12-01 09:22:00 Completed [facility] FLUZONE HIGH DOSE OVER 65 FLUZONE HIGH DOSE OVER 65 2021-12-01 09:21:00 Completed [facility] FLUZONE HIGH DOSE OVER 65 FLUZONE HIGH DOSE OVER 65 2021-12-01 09:21:00 Completed [facility] FLUZONE HIGH DOSE OVER 65 FLUZONE HIGH DOSE OVER 65 2021-12-01 09:21:00 Completed [facility] FLUZONE HIGH DOSE OVER 65 FLUZONE HIGH DOSE OVER 65 2021-12-01 09:21:00 Completed [facility] FLUZONE HIGH DOSE OVER 65 FLUZONE HIGH DOSE OVER 65 2021-12-01 09:21:00 Completed [facility] FLUZONE HIGH DOSE OVER 65 FLUZONE HIGH DOSE OVER 65 2021-12-01 09:21:00 Completed [facility] FLUZONE HIGH DOSE OVER 65 FLUZONE HIGH DOSE OVER 65 2021-12-01 09:21:00 Completed [facility] FLUZONE HIGH DOSE OVER 65 FLUZONE HIGH DOSE OVER 65 2021-12-01 09:21:00 Completed [facility] FLUZONE HIGH DOSE OVER 65 FLUZONE HIGH DOSE OVER 65 2021-12-01 09:21:00 Completed [facility] Fluzone Fluzone 2020-11-30 10:20:00 Completed [facility] Fluzone Fluzone 2020-11-30 10:20:00 Completed [facility] Fluzone Fluzone 2020-11-30 10:20:00 Completed [facility] Fluzone Fluzone 2020-11-30 10:20:00 Completed [facility] Fluzone Fluzone 2020-11-30 10:20:00 Completed [facility] Fluzone Fluzone 2020-11-30 10:20:00 Completed [facility] Fluzone Fluzone 2020-11-30 10:20:00 Completed [facility] Fluzone Fluzone 2020-11-30 10:20:00 Completed [facility] Fluzone Fluzone 2020-11-30 10:20:00 Completed [facility] Fluzone Fluzone 2020-11-30 10:20:00 Completed [facility] Pfizer COVID-19 Vaccine Pfizer COVID-19 Vaccine 2020-04-02 10:20:00 Completed [facility] Pfizer COVID-19 Vaccine Pfizer COVID-19 Vaccine 2020-04-02 10:20:00 Completed [facility] Pfizer COVID-19 Vaccine Pfizer COVID-19 Vaccine 2020-04-02 10:20:00 Completed [facility] Pfizer COVID-19 Vaccine Pfizer COVID-19 Vaccine 2020-04-02 10:20:00 Completed [facility] Pfizer COVID-19 Vaccine Pfizer COVID-19 Vaccine 2020-04-02 10:20:00 Completed [facility] Pfizer COVID-19 Vaccine Pfizer COVID-19 Vaccine 2020-04-02 10:20:00 Completed [facility] Pfizer COVID-19 Vaccine Pfizer COVID-19 Vaccine 2020-04-02 10:20:00 Completed [facility] Pfizer COVID-19 Vaccine Pfizer COVID-19 Vaccine 2020-04-02 10:20:00 Completed [facility] Pfizer COVID-19 Vaccine Pfizer COVID-19 Vaccine 2020-04-02 10:20:00 Completed [facility] Pfizer COVID-19 Vaccine Pfizer COVID-19 Vaccine 2020-04-02 10:20:00 Completed [facility] SARS-COV-2 COVID-19 PFIZER VACCINE 2020-04-02 00:00:[address] [facility] SARS-COV-2 COVID-19 PFIZER VACCINE 2020-04-02 00:00:[address] [facility] SARS-COV-2 COVID-19 PFIZER VACCINE 2020-04-02 00:00:[address] [facility] SARS-COV-2 COVID-19 PFIZER VACCINE 2020-04-02 00:00:[address] [facility] Pfizer COVID-19 Vaccine Pfizer COVID-19 Vaccine 2020-03-12 10:20:00 Completed [facility] Pfizer COVID-19 Vaccine Pfizer COVID-19 Vaccine 2020-03-12 10:20:00 Completed [facility] Pfizer COVID-19 Vaccine Pfizer COVID-19 Vaccine 2020-03-12 10:20:00 Completed [facility] Pfizer COVID-19 Vaccine Pfizer COVID-19 Vaccine 2020-03-12 10:20:00 Completed [facility] Pfizer COVID-19 Vaccine Pfizer COVID-19 Vaccine 2020-03-12 10:20:00 Completed [facility] Pfizer COVID-19 Vaccine Pfizer COVID-19 Vaccine 2020-03-12 10:20:00 Completed [facility] Pfizer COVID-19 Vaccine Pfizer COVID-19 Vaccine 2020-03-12 10:20:00 Completed [facility] Pfizer COVID-19 Vaccine Pfizer COVID-19 Vaccine 2020-03-12 10:20:00 Completed [facility] Pfizer COVID-19 Vaccine Pfizer COVID-19 Vaccine 2020-03-12 10:20:00 Completed [facility] Pfizer COVID-19 Vaccine Pfizer COVID-19 Vaccine 2020-03-12 10:20:00 Completed [facility] SARS-COV-2 COVID-19 PFIZER VACCINE 2020-03-12 00:00:[address] [facility] SARS-COV-2 COVID-19 PFIZER VACCINE 2020-03-12 00:00:[address] [facility] SARS-COV-2 COVID-19 PFIZER VACCINE 2020-03-12 00:00:[address] [facility] SARS-COV-2 COVID-19 PFIZER VACCINE 2020-03-12 00:00:[address] [facility] Influenza High Dose Quad 2019-12-05 00:00:[address] [facility] Influenza High Dose Quad 2019-12-05 00:00:[address] [facility] Influenza High Dose Quad 2019-12-05 00:00:[address] [facility] Influenza High Dose Quad 2019-12-05 00:00:[address] [facility] Pneumococcal Polysaccharide, PPSV23 (PNEUMOVAX) 2004-12-06 00:00:[address] [facility] Pneumococcal Polysaccharide, PPSV23 (PNEUMOVAX) 2004-12-06 00:00:[address] [facility] Pneumococcal Polysaccharide, PPSV23 (PNEUMOVAX) 2004-12-06 00:00:[address] [facility] Pneumococcal Polysaccharide, PPSV23 (PNEUMOVAX) 2004-12-06 00:00:[address] [facility] Prevnar 20 (PCV20) Prevnar 20 (PCV20) Unknown Completed [facility] Pfizer COVID-19 Vaccine Pfizer COVID-19 Vaccine Unknown Completed [facility] Fluzone Fluzone Unknown Completed [facility] FLUZONE HIGH DOSE OVER 65 FLUZONE HIGH DOSE OVER 65 Unknown Completed [facility] Prevnar 20 (PCV20) Prevnar 20 (PCV20) Unknown Completed [facility] Pfizer COVID-19 Vaccine Pfizer COVID-19 Vaccine Unknown Completed [facility] Fluzone Fluzone Unknown Completed [facility] FLUZONE HIGH DOSE OVER 65 FLUZONE HIGH DOSE OVER 65 Unknown Completed [facility] Prevnar 20 (PCV20) Prevnar 20 (PCV20) Unknown Completed [facility] Pfizer COVID-19 Vaccine Pfizer COVID-19 Vaccine Unknown Completed [facility] Fluzone Fluzone Unknown Completed [facility] FLUZONE HIGH DOSE OVER 65 FLUZONE HIGH DOSE OVER 65 Unknown Completed [facility] Prevnar 20 (PCV20) Prevnar 20 (PCV20) Unknown Completed [facility] Pfizer COVID-19 Vaccine Pfizer COVID-19 Vaccine Unknown Completed [facility] Fluzone Fluzone Unknown Completed [facility] FLUZONE HIGH DOSE OVER 65 FLUZONE HIGH DOSE OVER 65 Unknown Completed [facility] Prevnar 20 (PCV20) Prevnar 20 (PCV20) Unknown Completed [facility] Pfizer COVID-19 Vaccine Pfizer COVID-19 Vaccine Unknown Completed [facility] Fluzone Fluzone Unknown Completed [facility] FLUZONE HIGH DOSE OVER 65 FLUZONE HIGH DOSE OVER 65 Unknown Completed [facility] Prevnar 20 (PCV20) Prevnar 20 (PCV20) Unknown Completed [facility] Pfizer COVID-19 Vaccine Pfizer COVID-19 Vaccine Unknown Completed [facility] Fluzone Fluzone Unknown Completed [facility] FLUZONE HIGH DOSE OVER 65 FLUZONE HIGH DOSE OVER 65 Unknown Completed [facility] Prevnar 20 (PCV20) Prevnar 20 (PCV20) Unknown Completed [facility] Pfizer COVID-19 Vaccine Pfizer COVID-19 Vaccine Unknown Completed [facility] Fluzone Fluzone Unknown Completed [facility] FLUZONE HIGH DOSE OVER 65 FLUZONE HIGH DOSE OVER 65 Unknown Completed [facility] Prevnar 20 (PCV20) Prevnar 20 (PCV20) Unknown Completed [facility] Pfizer COVID-19 Vaccine Pfizer COVID-19 Vaccine Unknown Completed [facility] Fluzone Fluzone Unknown Completed [facility] FLUZONE HIGH DOSE OVER 65 FLUZONE HIGH DOSE OVER 65 Unknown Completed [facility] Prevnar 20 (PCV20) Prevnar 20 (PCV20) Unknown Completed [facility] Pfizer COVID-19 Vaccine Pfizer COVID-19 Vaccine Unknown Completed [facility] Fluzone Fluzone Unknown Completed [facility] FLUZONE HIGH DOSE OVER 65 FLUZONE HIGH DOSE OVER 65 Unknown Completed [facility] Vital Signs Vital Name Observation Time Observation Value Comments S ource height 2022-12-21 13:30:00 64.5 [in_i] Comm on [facility] weight 2022-12-21 13:30:00 195 [lb_av] Comm on [facility] temperature 2022-12-21 13:30:00 98.0 [degF] Com [facility] bmi 2022-12-21 13:30:00 32.95 kg/m2 Comm on [facility] blood pressure systolic 2022-12-21 13:30:00 134 mm[Hg] [facility] blood pressure diastolic 2022-12-21 13:30:00 80 mm[Hg] Common [facility] height 2022-08-01 10:40:00 64.5 [in_i] Comm on [facility] weight 2022-08-01 10:40:00 196.2 [lb_av] Co mmon [facility] temperature 2022-08-01 10:40:00 97.4 [degF] Com mon [facility] bmi 2022-08-01 10:40:00 33.15 kg/m2 Comm on [facility] oximetry 2022-08-01 10:40:00 94 % Commo [facility] respiratory rate 2022-08-01 10:40:00 16 /min [facility] blood pressure systolic 2022-08-01 10:40:00 126 mm[Hg] Common [facility] blood pressure diastolic 2022-08-01 10:40:00 74 mm[Hg] Common [facility] height 2022-06-27 10:40:00 64.5 [in_i] Comm on [facility] weight 2022-06-27 10:40:00 195.4 [lb_av] Co mmon [facility] temperature 2022-06-27 10:40:00 97.1 [degF] Com mon [facility] bmi 2022-06-27 10:40:00 33.02 kg/m2 Comm on [facility] oximetry 2022-06-27 10:40:00 98 % [facility] respiratory rate 2022-06-27 10:40:00 17 /min Common [facility] blood pressure systolic 2022-06-27 10:40:00 130 mm[Hg] Common [facility] blood pressure diastolic 2022-06-27 10:40:00 70 mm[Hg] Common [facility] height 2021-12-01 08:00:00 64.5 [in_i] Comm on [facility] weight 2021-12-01 08:00:00 197.6 [lb_av] Co mmon [facility] temperature 2021-12-01 08:00:00 98.4 [degF] Com [facility] bmi 2021-12-01 08:00:00 33.39 kg/m2 Comm on [facility] oximetry 2021-12-01 08:00:00 92 % [facility] respiratory rate 2021-12-01 08:00:00 17 /min Common [facility] blood pressure systolic 2021-12-01 08:00:00 138 mm[Hg] Common [facility] blood pressure diastolic 2021-12-01 08:00:00 72 mm[Hg] [facility] height 2021-12-01 08:40:00 64.5 [in_i] Comm on [facility] weight 2021-12-01 08:40:00 197.6 [lb_av] Co mmon [facility] temperature 2021-12-01 08:40:00 98.4 [degF] Com [facility] bmi 2021-12-01 08:40:00 33.39 kg/m2 Comm on [facility] oximetry 2021-12-01 08:40:00 92 % Com[facility] respiratory rate 2021-12-01 08:40:00 17 /min [facility] blood pressure systolic 2021-12-01 08:40:00 138 mm[Hg] Common [facility] blood pressure diastolic 2021-12-01 08:40:00 72 mm[Hg] Common [facility] height 2021-08-01 08:20:00 66 [in_i] [facility]mo [facility] weight 2021-08-01 08:20:00 208.8 [lb_av] Co mmon [facility] temperature 2021-08-01 08:20:00 97.1 [degF] Com mon [facility] bmi 2021-08-01 08:20:00 33.70 kg/m2 Comm on [facility] oximetry 2021-08-01 08:20:00 95 % Commo n [facility] respiratory rate 2021-08-01 08:20:00 16 /min Common [facility] blood pressure systolic 2021-08-01 08:20:00 102 mm[Hg] Common Spiri t [facility] blood pressure diastolic 2021-08-01 08:20:00 68 mm[Hg] [facility] height 2021-03-31 08:00:00 66 [in_i] Commo n [facility] weight 2021-03-31 08:00:00 206.6 [lb_av] Co mmon [facility] temperature 2021-03-31 08:00:00 96.6 [degF] Com [facility] bmi 2021-03-31 08:00:00 33.34 kg/m2 Comm on [facility] oximetry 2021-03-31 08:00:00 97 % Commo [facility] respiratory rate 2021-03-31 08:00:00 16 /min [facility] blood pressure systolic 2021-03-31 08:00:00 130 mm[Hg] Common Spiri t [facility] blood pressure diastolic 2021-03-31 08:00:00 64 mm[Hg] [facility] height 2020-11-30 10:20:00 66 [in_i] Commo n [facility] weight 2020-11-30 10:20:00 208.0 [lb_av] Co mmon [facility] temperature 2020-11-30 10:20:00 96.7 [degF] Com [facility] bmi 2020-11-30 10:20:00 33.57 kg/m2 Comm on [facility] oximetry 2020-11-30 10:20:00 93 % Commo [facility] respiratory rate 2020-11-30 10:20:00 16 /min [facility] blood pressure systolic 2020-11-30 10:20:00 120 mm[Hg] [facility] blood pressure diastolic 2020-11-30 10:20:00 62 mm[Hg] [facility] height 2020-11-30 10:20:00 66 [in_i] Commo n [facility] weight 2020-11-30 10:20:00 208 [lb_av] Comm on [facility] bmi 2020-11-30 10:20:00 33.57 kg/m2 Comm on [facility] blood pressure systolic 2020-11-30 10:20:00 120 mm[Hg] [facility] blood pressure diastolic 2020-11-30 10:20:00 62 mm[Hg] Common [facility] height 2020-10-29 14:00:00 66 [in_i] Commo n [facility] weight 2020-10-29 14:00:00 210.2 [lb_av] Co mmon [facility] temperature 2020-10-29 14:00:00 96.8 [degF] Com mon [facility] bmi 2020-10-29 14:00:00 33.92 kg/m2 Comm on [facility] oximetry 2020-10-29 14:00:00 90 % Commo [facility] respiratory rate 2020-10-29 14:00:00 18 /min [facility] blood pressure systolic 2020-10-29 14:00:00 139 mm[Hg] Common [facility] blood pressure diastolic 2020-10-29 14:00:00 63 mm[Hg] [facility] Encounters Start Date/Time End Date/Time Encounter Type Admission Type Attending [facility] Facility Care Department Encounter ID Source 2022-12-12 14:42:01 Outpatient Divine Chan [facility] [id number] [facility] 2022-10-27 14:48:00 Outpatient Divine Chan [facility] ST[facility] [id number] [facility] 2022-06-27 11:03:02 Outpatient Helen Chan [facility] ST[facility] [id number] [facility] 2022-06-23 11:17:00 Outpatient Divine Chan ST[facility] ST[facility] [id number] [facility] 2022-05-25 15:30:01 Outpatient Divine Chan [facility]ML[facility] ST[facility] [id number] [facility] 2022-05-24 15:17:01 Outpatient Divine Chan [facility]ML[facility] ST[facility] [id number] [facility] 2022-03-22 14:44:00 Outpatient Mady Dhillon STLML[facility] ST[facility] [id number] [facility] 2021-11-29 07:48:01 Outpatient Horace, Na [facility]ML[facility] ST[facility] [id number] [facility] 2021-07-27 15:16:01 Outpatient Vu, Na [facility] ST[facility] [id number] [facility] 2021-03-16 14:04:07 Outpatient Vu, Na [facility] ST[facility] [id number] [facility] 2023-01-24 00:00:00 2023-01-24 00:00:00 Outpatient GC_GCBZW_Ka diyala_S PRIV PRIV [id number] [facility] 2022-12-21 00:00:00 2022-12-21 00:00:00 OFFICE VISIT NEW PT LEVEL 3 [facility] ST[facility] [id number] [facility] 2022-12-13 00:00:00 2022-12-13 00:00:00 Outpatient GC_GCBZW_Ka dipaty_S [facility] [id number] [facility] 2022-10-05 00:00:00 2022-10-05 00:00:00 (TEL) STLMLC STLMLC [id number] [facility] 2022-08-07 00:00:00 2022-08-07 00:00:00 (TEL) [facility]MLC [facility] [id number] [facility] 2022-08-01 00:00:00 2022-08-01 00:00:00 OFFICE VISIT ESTAB PT LEVEL 4 [facility] ST[facility]C [id number] [facility] 2022-07-28 00:00:00 2022-07-28 00:00:00 (TEL) STLMLC ST[facility]C [id number] [facility] 2022-06-29 00:00:00 2022-06-29 00:00:00 (TEL) [facility]LMLC ST[facility]C [id number] [facility] 2022-06-27 00:00:00 2022-06-27 00:00:00 OFFICE VISIT ESTAB PT LEVEL 3 [facility] STL[facility]C [id number] [facility] 2022-06-20 00:00:00 2022-06-20 00:00:00 (TEL) STLMLC STL[facility]C [id number] [facility] 2022-05-24 00:00:00 2022-05-24 00:00:00 (TEL) STLMLC STLMLC [id number] [facility] 2022-03-22 00:00:00 2022-03-22 00:00:00 (TEL) STLMLC STLMLC [id number] [facility] 2022-03-01 00:00:00 2022-03-01 00:00:00 (TEL) STLMLC STLMLC [id number] [facility] 2021-12-08 00:00:00 2021-12-08 00:00:00 (TEL) STLMLC STLMLC [id number] [facility] 2021-12-01 00:00:00 2021-12-01 00:00:00 SUB ANNUAL [facility] WELLNESS VISIT STLMLC STLMLC [id number] [facility] 2021-12-01 00:00:00 2021-12-01 00:00:00 OFFICE VISIT EST PT LEVEL 3 [facility] STL[facility]C [id number] [facility] 2021-09-13 00:00:00 2021-09-13 00:00:00 (TEL) STLMLC STLMLC [id number] [facility] 2021-09-05 00:00:00 2021-09-05 00:00:00 (TEL) STLMLC STLMLC [id number] [facility] 2021-08-01 00:00:00 2021-08-01 00:00:00 OFFICE VISIT ESTAB PT LEVEL 4 [facility]LMLC STLMLC [id number] [facility] 2021-04-05 00:00:00 2021-04-05 00:00:00 (TEL) STLMLC STLMLC [id number] [facility] 2021-04-01 00:00:00 2021-04-01 00:00:00 (TEL) STLMLC STLMLC [id number] [facility] 2021-03-31 00:00:00 2021-03-31 00:00:00 OFFICE VISIT ESTAB PT LEVEL 4 STLMLC STLMLC [id number] [facility] 2021-01-25 00:00:00 2021-01-25 00:00:00 Refill [facility] [id number] [facility] 2020-12-28 00:00:00 2020-12-28 00:00:00 Patrick Archibald [facility] OFFICE BUILDING ONE [id number] [facility] 2020-12-27 00:00:00 2020-12-27 00:00:00 (TEL) STLMLC STLMLC [id number] [facility] 2020-12-27 00:00:00 2020-12-27 00:00:00 OFFICE VISIT EST PT LEVEL 3 STLMLC STLMLC [id number] [facility] 2020-12-21 00:00:00 2020-12-21 00:00:00 Adilson Chen [facility] OFFICE BUILDING ONE [id number] [facility] 2020-11-30 00:00:00 2020-11-30 00:00:00 SUB ANNUAL [facility] WELLNESS VISIT STLMLC STLMLC [id number] [facility] 2020-11-30 00:00:00 2020-11-30 00:00:00 OFFICE VISIT ESTAB PT LEVEL 3 STLMLC STLMLC [id number] [facility] 2020-11-08 00:00:00 2020-11-08 00:00:00 Adilson Chen [facility] Office Building One [id number] [facility] 2020-10-29 00:00:00 2020-10-29 00:00:00 OFFICE VISIT NEW PT LEVEL 4 STLMLC STLMLC [id number] [facility] 2020-05-11 00:00:00 2020-05-11 00:00:00 Outpatient ADILSON PHILLIPS [facility] [id number] [facility] 2020-05-04 00:00:00 2020-05-04 00:00:00 Outpatient Kim PAREDESISRA RUBYANAHELIO [facility] [id number] [facility] 2020-04-02 15:30:00 2020-04-02 15:30:00 Outpatient LUCIUS LAZAR [facility] [id number] [facility] 2020-03-24 00:00:00 2020-03-24 00:00:00 Outpatient Kim DHALIWAL RUBYANAHELIO [facility] [id number] [facility] 2020-03-18 09:00:00 2020-03-18 09:00:00 Outpatient Kim [facility] [id number] [facility] 2020-03-16 10:00:00 2020-03-16 10:00:00 Outpatient Kim DHALIWAL RUBYANAHELIO [facility] [id number] [facility] 2020-03-12 16:50:00 2020-03-12 16:50:00 Outpatient LUCIUS LAZAR [facility] [id number] [facility] 2019-10-06 00:00:00 2019-10-06 00:00:00 Outpatient Kim DHALIWAL RUBYANAHELIO [facility] [id number] [facility] 2019-09-29 15:00:00 2019-09-29 15:00:00 Outpatient Kim DHALIWAL RUBYFLETCHER [facility] [id number] [facility] 2019-09-24 08:30:00 2019-09-24 08:30:00 Outpatient Kim DHALIWAL RUBYFLETCHER [facility] [id number] [facility] 2019-09-18 14:45:00 2019-09-18 14:45:00 Outpatient Kim DHALIWAL RUBYFLETCHER [facility] [id number] [facility] Results Test Description Test Time Test Comments Results Result Co mments Source COMPREHENSIVE METABOLIC [id number] 00:00:00* Test Item Value Reference Range Interpretation Comme nts ALBUMIN (test code = 1751-7) 4.6 G/DL See_Comment [Automated messa ge] The system which generated this result transmitted reference range: 3.5-5.2 G/DL. The reference range was not used to interpret this result as normal/abnormal. ALKALINE PHOSPHATASE (test code = 6768-6) 114 U/L See_Comment [Automated message] The system which generated this result transmitted reference range: 40-142 U/L. The reference range was not used to interpret this result as normal/abnormal. BILIRUBIN, TOTAL (test code = 1975-2) <0.2 MG/DL See_Comment [Automated message] The system which generated this result transmitted reference range: <=1.2 MG/DL. The reference range was not used to interpret this result as normal/abnormal. BUN (test code = 3094-0) 42 MG/DL See_Comment H [Automated messa ge] The system which generated this result transmitted reference range: 8-23 MG/DL. The reference range was not used to interpret this result as normal/abnormal. CALCIUM (test code = 45246-4) 9.8 MG/DL See_Comment [Automated messa ge] The system which generated this result transmitted reference range: 8.5-10.5 MG/DL. The reference range was not used to interpret this result as normal/abnormal. CALC A/G RATIO (test code = 1759-0) 1.5 RATIO See_Comment [Automated messa ge] The system which generated this result transmitted reference range: 1.0-2.6 RATIO. The reference range was not used to interpret this result as normal/abnormal. CALC BUN/CREAT (test code = 3097-3) 19 RATIO See_Comment [Automated messa ge] The system which generated this result transmitted reference range: 6-28 RATIO. The reference range was not used to interpret this result as normal/abnormal. CALC GLOBULIN (test code = 23252-3) 3.1 G/DL See_Comment [Automated messa ge] The system which generated this result transmitted reference range: 1.9-3.7 G/DL. The reference range was not used to interpret this result as normal/abnormal. CARBON DIOXIDE (test code = 1963-8) 22 MEQ/L See_Comment [Automated messa ge] The system which generated this result transmitted reference range: 19-31 MEQ/L. The reference range was not used to interpret this result as normal/abnormal. CHLORIDE (test code = 2075-0) 106 MEQ/L See_Comment [Automated messa ge] The system which generated this result transmitted reference range: 95-107 MEQ/L. The reference range was not used to interpret this result as normal/abnormal. CREATININE (test code = 2160-0) 2.23 MG/DL See_Comment H [Automated messa ge] The system which generated this result transmitted reference range: 0.60-1.30 MG/DL. The reference range was not used to interpret this result as normal/abnormal. eGFR (2020 CKD-EPI) (test code = 47172-0) 21 ML/MIN/1.73 See_Comment L [Automated messa ge] The system which generated this result transmitted reference range: >60 ML/MIN/1.73. The reference range was not used to interpret this result as normal/abnormal. GLUCOSE (test code = 1558-6) 87 MG/DL See_Comment [Automated messa ge] The system which generated this result transmitted reference range: 70-99 MG/DL. The reference range was not used to interpret this result as normal/abnormal. POTASSIUM (test code = 2823-3) 4.7 MEQ/L See_Comment [Automated messa ge] The system which generated this result transmitted reference range: 3.5-5.4 MEQ/L. The reference range was not used to interpret this result as normal/abnormal. PROTEIN, TOTAL (test code = 2885-2) 7.7 G/DL See_Comment [Automated messa ge] The system which generated this result transmitted reference range: 6.1-8.3 G/DL. The reference range was not used to interpret this result as normal/abnormal. AST (test code = 1920-8) 21 U/L See_Comment [Automated messa ge] The system which generated this result transmitted reference range: 9-40 U/L. The reference range was not used to interpret this result as normal/abnormal. ALT (test code = 1742-6) 23 U/L See_Comment [Automated messa ge] The system which generated this result transmitted reference range: 5-40 U/L. The reference range was not used to interpret this result as normal/abnormal. SODIUM (test code = 2951-2) 144 MEQ/L See_Comment [Automated messa ge] The system which generated this result transmitted reference range: 133-146 MEQ/L. The reference range was not used to interpret this result as normal/abnormal. DEXA, BONE DENSITY AXIAL SKELEDEXA, BONE DENSITY AXIAL SKELE
--- NOTE | 2024-06-05 15:42 | RAD REPORT ---
EXAM: CT brain without contrast HISTORY: TRAUMA COMPARISON: None TECHNIQUE: Multiple contiguous axial images were obtained and a CT of the brain without contrast. Sag ittal and coronal reformats were performed. One or more of the following dose reduction techniques were used: Automated exposure control, adjust ment of the mA and/or kV according to patient size, and/or iterative reconstruction. FINDINGS: No evidence of hydrocephalus, intracranial hemorrhage, or extra-axial fluid collection. Mild brain atrophy with mild periventricular and deep white matter chronic microvascular ischemic ch anges present. No evidence of midline shift or areas of brain edema. The calvarium is intact. The visualized paranasal sinuses and mastoid air cells are essentially clear . Mild nasal bone fracture suspected. EXAM: CT of the cervical spine without contrast HISTORY: Neck pain, injury TRAUMA TECHNIQUE: Multiple contiguous axial images were obtained in a CT of the cervical spine without contr ast. Sagittal and coronal reformats were performed. FINDINGS: The vertebral bodies demonstrate normal height and alignment. No evidence of acute fracture or subluxation.. Moderate mid cervical degenerative spondylosis. No prevertebral soft tissue swelling is seen. The posterior facets are well aligned. Normal alignment of the skull base with the cervical spine is seen. The lung apices are unremarkable. IMPRESSION: No evidence of acute intracranial abnormality. No evidence of acute osseous abnormality of the cervical spine. Mild nasal bone fracture is suspected.
--- NOTE | 2024-06-05 15:55 | RAD REPORT ---
EXAMINATION: CT MAXILLOFACIAL WITHOUT CONTRAST CLINICAL INDICATION: trauma fall TECHNIQUE: Axial images were obtained through the facial bones and orbits without intravenous contras t. Sagittal and coronal reconstructions were created from the data. One or more of the following dose reduction techniques were used: Automated exposure control, adjustment of the mA and/or kV accor ding to patient size, and/or iterative reconstruction. Unless otherwise specified, incidental findings do not require dedicated imaging follow-up. COMPARISON: 05/08/2023 05/08/2023 FINDINGS: SOFT TISSUE: Mild soft tissue tissue swelling seen anterior nasal region. BONES: Mildly comminuted distal nasal bone fracture. No additional facial bone fracture is seen. ORBITS: The globes are intact. No intraorbital hemorrhage or mass. SINUSES: The visualized paranasal sinuses and mastoid air cells are essentially clear. IMPRESSION: Mild nasal bone fracture is seen.
--- NOTE | 2024-06-05 16:00 | RAD REPORT ---
EXAM: CT CHEST, ABDOMEN AND PELVIS WITHOUT CONTRAST CLINICAL INDICATION: TRAUMA TECHNIQUE: CT chest, abdomen and pelvis was performed without contrast, as per department protocol. A xial, sagittal and coronal reconstructions were obtained. One or more of the following dose reduction techniques were used: Automated exposure control, adjustment of the mA and/or kV according to patient size, and/or iterative reconstruction. Unless otherwise specified, incidental findings do not require dedicated imaging follow-up. Examination is limited by the lack of intravenous contrast material. COMPARISON: 06/21/2022 FINDINGS: LUNGS: Mild linear atelectasis is present in both lung bases. No nodule, mass or focal infiltrate. PLEURA: No pleural effusion. No pneumothorax. MEDIASTINUM AND LYMPH NODES: No mediastinal mass or fluid collection. Normal size mediastinal, hilar, and axillary lymph nodes. OSSEOUS STRUCTURES AND CHEST WALL: No rib fracture or sternal fracture appreciated. LIVER: Normal in size and contour. No focal lesion or biliary dilatation. Nonvisualized gallbladder. PANCREAS: Pancreatic atrophy. SPLEEN: Normal size. No focal lesion. ADRENALS: Normal; no mass. KIDNEYS: Large 14 mm stone left renal pelvis. Additional 9 mm stone inferior calyx left kidney. No ri ght-sided stone or hydronephrosis. URINARY BLADDER: Normal contour. GASTROINTESTINAL TRACT: No bowel obstruction, free air, significant free fluid or abscess. Prominen t stool is retained throughout the colon. APPENDIX: Appendix not visualized, but no inflammatory changes in region of appendix. LYMPH NODES: No lymphadenopathy. MUSCULOSKELETAL: Comminuted multipart fracture of the right humerus is noted. OTHER: Posterior fusion hardware lumbar spine. IMPRESSION: Multipart fracture right humerus noted. Left renal calculi without hydronephrosis.
--- NOTE | 2024-06-05 16:01 | RAD REPORT ---
EXAMINATION: XR RIGHT HUMERUS HISTORY: trauma RIGHT TECHNIQUE: Multiple views of the right humerus performed. COMPARISON: None FINDINGS: Moderately angulated fracture midshaft right humerus. Mildly comminuted proximal right yusuf bob fracture also seen. No dislocation evident.
[2024-06-05] MEDS ORDERED: ONDANSETRON 4 MG/2 ML VIAL ONE (16:17)
[2024-06-05] MEDS ORDERED: MORPHINE 4 MG/ML SYR ONE (16:17)
[2024-06-05] MEDS ORDERED: LIDOCAINE 2% MPF 5 ML VIAL ONE (16:19)
[2024-06-05] MEDS ORDERED: LIDOCAINE 2% W/EPI 1:200,000 MPF 20 ML VIAL IM ONE (16:22)
[2024-06-05 16:34] LABS: Absolute Eosinophils 0.1 K/uL (0-0.5); Absolute Lymphocytes (CBC) 1.1 K/uL (0.7-4.9); Absolute Monocytes 0.8 K/uL (0.1-1.3); Absolute Neutrophil 9.1 K/uL (1.8-8.0); Basophils % 0.4 % (0-1.3); Eosinophils % 1.1 % (0-4.4); Hematocrit 34.2 % (36.0-45.0); Hemoglobin 11.8 g/dL (12.0-15.0); Lymphocytes % 9.6 % (15.3-44.8); MCH 32.1 pg (27.0-35.0); MCHC 34.6 g/dL (32.0-36.0); MCV 92.8 fL (80-100); MPV 7.7 fL (7.6-11.3); Monocytes % 7.2 % (3.3-12.3); Neutrophils % 81.7 % (41.7-73.7); Platelets 232 thou/uL (152-406); RBC Red Blood Cell Count 3.68 M/uL (3.86-4.86); Red Cell Distribution Width 13.7 % (12.1-15.2)
[2024-06-05] MEDS ORDERED: NA CHLORIDE 0.9% 100 ML ONE (16:52)
[2024-06-05] MEDS ORDERED: CEFAZOLIN SODIUM 1 GM/VIAL ONE (16:52)
[2024-06-05] MEDS ORDERED: TDAP (DIPHTH,PERTUSS(ACELL),TET VAC) 0.5 ML VIAL IMVAC ONE (16:52)
[2024-06-05 16:54] LABS: Albumin 3.6 g/dL (3.4-5.0); Albumin/Globulin Ratio 0.9 (1.1-1.8); Anion Gap 9.9 mEq/L (5.0-15.0); Bilirubin Direct 0.2 mg/dL (0-0.2); Bilirubin Indirect, Calculated 0.3 mg/dL (0.2-0.8); Bilirubin Total 0.5 mg/dL (0.2-1.0); Globulin 3.8 g/dL (2.3-3.5); Potassium 3.9 mEq/L (3.5-5.1); Protein, Total 7.4 g/dL (6.4-8.2); Troponin High Sensitivity 7.3 pg/mL (<58.9)
--- NOTE | 2024-06-05 16:57 | ER ---
Nurse's Notes [facility] Name: Toya Kaur Age: 84 yrs Sex: Female : 1940 Arrival Date: 06/05/2024 Time: 15:12 Bed 5 Private MD: Diagnosis: Multiple falls, closed head injury, nasal fracture, nasal laceration, right humerus fracture, facial contusions Presentation: 06/05 15:13 Chief complaint: EMS states: Right shoulder deformity and laceration to bridge of nose hb after mechanical fall from standing x 2 today. 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 BP 80/60s, HR 70, SpO2 97% on RA, EKG NSR. Takes ASA. Care prior to arrival: IV initiated. 22 GA, in the left hand. Mechanism of Injury: Fall from standing position. Trauma event details: Injury occurred in the [facility], Injury occurred: at home. Injury occurred: June 05, 2024. 15:13 Acuity: WILMER 2 hb 15:13 Method Of Arrival: EMS: [facility] hb 15:17 Coronavirus screen: At this time, the client does not indicate any symptoms associated hb with coronavirus-19. Ebola Screen: No symptoms or risks identified at this time. Initial Sepsis Screen: Does the patient meet any 2 criteria? No. Patient's initial sepsis screen is negative. Does the patient have a suspected source of infection? No. Patient's initial sepsis screen is negative. Risk Assessment: Do you want to hurt yourself or someone else? Patient reports no desire to harm self or others. Onset of symptoms was June 05, 2024. Triage Assessment: 15:15 General: Appears in no apparent distress. uncomfortable, Behavior is calm, cooperative. hb Pain: Pain currently is 8 out of 10 on a pain scale. Neuro: GCS 15. Trauma Activation: Not Applicable Physician: ED Physician; Name: ; Notified At: ; Arrived At: Physician: General Surgeon; Name: ; Notified At: ; Arrived At: Physician: Radiology; Name: ; Notified At: ; Arrived At: Physician: Respiratory; Name: ; Notified At: ; Arrived At: Physician: Lab; Name: ; Notified At: ; Arrived At: Historical: - Allergies: 15:18 Latex; hb - Home Meds: 15:29 aspirin 81 mg Oral chew 1 tab once daily [Active]; doxepin 75 mg Oral cap 1 cap 2 times hb per day [Active]; furosemide 40 mg Oral tab 1 tab once daily [Active]; gabapentin 600 mg Oral tab 1 tab 3 times per day [Active]; latanoprost ophthalmic [Active]; levothyroxine 75 mcg tab 1 tab once daily [Active]; levothyroxine 75 mcg tab 1 tab once daily [Active]; losartan-hydrochlorothiazide 100-12.5 mg Oral tab 1 tab once daily [Active]; simvastatin 40 mg Oral tab 1 tab once daily [Active]; - PMHx: 15:18 Hyperlipidemia; Hypertension; Hypothyroidism; hb - Immunization history:: Adult Immunizations up to date. - Infectious Disease History:: Denies. - Social history:: Smoking status: Patient denies any tobacco usage or history of. Screenin:27 [facility] ED Fall Risk Assessment (Adult) History of falling in the last 3 months, hb including since admission Yes- fall prone (multiple falls) (3 pts) Confusion or Disorientation No (0 pts) Intoxicated or Sedated Yes (3 pts) Impaired Gait Yes (1 pt) Mobility Assist Device Used No (0 pt) Altered Elimination No (0 pt) Score/Fall Risk Level 3 or more points = High Risk Oriented to surroundings, Maintained a safe environment, Educated pt \T\ family on fall prevention, incl call for assistance when getting out of bed, Assessed \T\ reinforced patient's understanding of fall precautions. Abuse screen: Denies threats or abuse. Denies injuries from another. Nutritional screening: No deficits noted. Tuberculosis screening: No symptoms or risk factors identified. Assessment: 15:28 General: See triage assessment . hb 16:49 Reassessment: Patient appears in no apparent distress at this time. Patient and/or hb family updated on plan of care and expected duration. Pain level reassessed. Patient is alert, oriented x 3, equal unlabored respirations, skin warm/dry/pink. Vital Signs: 15:17 BP 109 / 50; Pulse 72; Resp 16; Temp 98.1; Pulse Ox 88% on R/A; Weight 95.25 kg; Height hb 5 ft. 5 in. ; Pain 8/10; 16:49 BP 159 / 80; Pulse 79; Resp 15; Pulse Ox 98% on 2 lpm NC; hb 15:17 Body Mass Index 34.94 (95.25 kg, 165.1 cm) hb 15:17 Pain Scale: Adult hb ED Course: 15:12 Patient arrived in ED. hb 15:13 Annia Cuellar MD is Attending Physician. sp3 15:17 Triage completed. hb 15:18 Arm band placed on. hb 15:[address] via stretcher. hb 15:27 Vanessa Small, RN is Primary Nurse. hb 15:27 Patient has correct armband on for positive identification. Bed in low position. Call hb light in reach. Provided Education on: tests, result times, fall precautions . Client placed on continuous cardiac and pulse oximetry monitoring. NIBP monitoring applied. clinical research monitor on. Pulse ox on. NIBP on. 15:34 Head C Spine Mpr Wo Con In Process Unspecified. EDMS 15:34 Chest Abd Pelvis Wo Con In Process Unspecified. EDMS 15:34 Facial Bones W/O Con CT In Process Unspecified. EDMS 15:53 Humerus Right XRAY In Process Unspecified. EDMS 16:00 Oxygen administration via nasal cannula \T\ 2L/min. hb 16:30 Assist provider with laceration repair on nose that was between 2.6 to 7.5 cm using sutures. Set up tray. Performed by Annia Cuellar MD Patient tolerated well. Wound care: to laceration located on nose was cleaned with with Hibiclens and water. 16:35 Accessed peripheral vein via ultrasound, utilizing dynamic ultrasound technique using per hospital protocol. Clean \T\ dry. Dressing intact. Good blood return. Flushes easily. 20G LAC. 16:56 Thuan Quiroz MD is Referral Physician. sp3 17:25 Hand Left 3 View XRAY In Process Unspecified. EDMS 18:11 One-on-one care X 60 minutes. hb Administered Medications: 16:32 Drug: morphine IVP or IV 4 mg IVP once over 4 mins Route: IVP; Infused Over: 4 mins; hb Site: left antecubital; 16:32 Drug: Ondansetron IVP 4 mg IVP once; over 2 minutes Route: IVP; Site: left antecubital; hb 16:51 Drug: Boostrix Tdap IM 0.5 ml IM once; as a single dose Route: IM; Site: left deltoid; hb 16:51 Drug: ceFAZolin IVPB 1 grams IVPB once Route: IVPB; Site: left antecubital; hb Medication: 15:28 VIS not applicable for this client. hb Outcome: 16:56 Discharge ordered by sp3 18:12 Discharged to home ambulatory, hb 18:12 Condition: stable 18:12 Discharge instructions given to patient, Instructed on discharge instructions, follow up and referral plans. medication usage, Demonstrated understanding of instructions, follow-up care, medications, Prescriptions given X 2, 18:12 Patient left the ED. hb Signatures: Dispatcher [employer] EDMS Vanessa Small, RN RN Annia Cuellar MD MD sp3 Corrections: (The following items were deleted from the chart) 15:19 15:17 BP 109 / 50; Pulse 72bpm; Resp 16bpm; Pulse Ox 97% RA; Temp 98.1F; 95.25 kg; hb Height 5 ft. 5 in.; BMI: 34.9; Pain 8/10, Adult; hb
--- NOTE | 2024-06-05 16:57 | EDPHYS ---
Physician Documentation [facility] Name: Toya Kaur Age: 84 yrs Sex: Female : 1940 Arrival Date: 06/05/2024 Time: 15:12 Bed 5 Private MD: ED Physician Annia Cuellar HPI: 06/05 15:25 This 84 yrs old Female presents to ER via EMS with complaints of Fall Injury. sp3 15:25 84-year-old female with history of hyperlipidemia, hypertension, hypothyroidism that sp3 presents to the ED after mechanical fall x 2 while at [facility] by EMS with right humerus fracture and facial injuries and head injury. Patient denies loss of consciousness, medical prodrome including chest pain, shortness of breath, headache or syncope, and states that she remembers the entire chain of events. She states that she tripped on her shoes twice. No chest, abdomen, back or other extremity pain except for the right upper extremity. Patient is on aspirin only and no other anticoagulants.. Historical: - Allergies: 15:18 Latex; hb - Home Meds: 15:29 aspirin 81 mg Oral chew 1 tab once daily [Active]; doxepin 75 mg Oral cap 1 cap 2 times hb per day [Active]; furosemide 40 mg Oral tab 1 tab once daily [Active]; gabapentin 600 mg Oral tab 1 tab 3 times per day [Active]; latanoprost ophthalmic [Active]; levothyroxine 75 mcg tab 1 tab once daily [Active]; levothyroxine 75 mcg tab 1 tab once daily [Active]; losartan-hydrochlorothiazide 100-12.5 mg Oral tab 1 tab once daily [Active]; simvastatin 40 mg Oral tab 1 tab once daily [Active]; - PMHx: 15:18 Hyperlipidemia; Hypertension; Hypothyroidism; hb - Immunization history:: Adult Immunizations up to date. - Infectious Disease History:: Denies. - Social history:: Smoking status: Patient denies any tobacco usage or history of. ROS: 15:28 Constitutional: Negative for fever, chills, and weight loss, Eyes: Negative for injury, sp3 pain, redness, and discharge, Neck: Negative for injury, pain, and swelling, Cardiovascular: Negative for chest pain, palpitations, and edema, Respiratory: Negative for shortness of breath, cough, wheezing, and pleuritic chest pain, Abdomen/GI: Negative for abdominal pain, nausea, vomiting, diarrhea, and constipation, Back: Negative for injury and pain, Skin: Negative for injury, rash, and discoloration, 15:28 All other systems are negative, Exam: 15:29 Constitutional: This is a well developed, well nourished patient who is awake, alert, sp3 and in no acute distress. Eyes: Pupils equal round and reactive to light, extra-ocular motions intact. Lids and lashes normal. Conjunctiva and sclera are non-icteric and not injected. Cornea within normal limits. Periorbital areas with no swelling, redness, or edema. ENT: Nares patent. No nasal discharge, no septal abnormalities noted. External auditory canals are clear. Oropharynx with no redness, swelling, or masses, exudates, or evidence of obstruction, uvula midline. Mucous membranes moist. Neck: Trachea midline, no thyromegaly or masses palpated, and no cervical lymphadenopathy. Supple, full range of motion without nuchal rigidity, or vertebral point tenderness. No Meningismus. Chest/axilla: Normal chest wall appearance and motion. Nontender with no deformity. No lesions are appreciated. Cardiovascular: Regular rate and rhythm with a normal S1 and S2. No gallops, murmurs, or rubs. Normal PMI, no JVD. No pulse deficits. Abdomen/GI: Soft, non-tender, with normal bowel sounds. No distension or tympany. No guarding or rebound. No evidence of tenderness throughout. Skin: Warm, dry with normal turgor. Normal color with no rashes, no lesions, and no evidence of cellulitis. Neuro: Awake and alert, GCS 15, oriented to person, place, time, and situation. Cranial nerves II-XII grossly intact. Motor strength 5/5 in all extremities. Sensory grossly intact. Cerebellar exam normal. Normal gait. Psych: Awake, alert, with orientation to person, place and time. Behavior, mood, and affect are within normal limits. 15:29 Head/face: Multiple contusions and abrasions and single laceration to the nose noted. Eye exam normal with no anterior chamber hyphema or other injury. Visual acuity grossly normal. Cranial nerves grossly normal. No malocclusion or TMJ pain.. 15:29 Musculoskeletal/extremity: Gross humerus fracture noted. X-ray pending. Distal neurovascular exam normal with full range of motion in hand with good pulses and neurological function.. Vital Signs: 15:17 BP 109 / 50; Pulse 72; Resp 16; Temp 98.1; Pulse Ox 88% on R/A; Weight 95.25 kg; Height hb 5 ft. 5 in. ; Pain 8/10; 16:49 BP 159 / 80; Pulse 79; Resp 15; Pulse Ox 98% on 2 lpm NC; hb 15:17 Body Mass Index 34.94 (95.25 kg, 165.1 cm) hb 15:17 Pain Scale: Adult hb Laceration: 16:46 Wound Repair of 2cm ( 0.8in ) subcutaneous laceration to face. Distal sp3 neuro/vascular/tendon intact. Anesthesia: Local anesthetic administered with 2 mls of 1% lidocaine w/ Epi. Wound prep: Simple cleansing, Wound irrigation. Skin closed with 5-0 Prolene using interrupted sutures and sterile technique. Patient tolerated well. MDM: 15:13 Medical Screening Exam initiated sp3 15:30 Data reviewed: vital signs, nurses notes, EMS record, lab test result(s), EKG, sp3 radiologic studies. ED course: 84-year-old female with mechanical fall x 2 injuring face and right upper extremity. Pulse oxygenation in the upper 80s low 90s without respiratory distress. Given mechanism of injury, we will image CT scan noncontrast of the head, facial bones, C-spine, chest abdomen pelvis. X-ray of right upper extremity humerus pending. General labs and EKG also pending. I am not highly suspicious of medical prodrome or medical inciting event causing a fall however we will check general labs and troponin. Patient is currently alert and oriented x 4 with pain controlled and no neurological complaints or symptoms. Disposition pending workup and patient course.. 16:47 ED course: All CT is negative except for nondisplaced nasal fracture. Right humerus sp3 fracture will be placed in a proper splint. I discussed with orthopedics will be seeing her in the office Dr. Quiroz. Face was repaired with three 5-0 Prolene sutures in an interrupted fashion sterile technique on the bridge of her nose. Wound approximation was achieved. Tetanus will be updated and patient will be discharged on antibiotic as well as tramadol for pain control.. 06/05 15:15 Order name: Basic Metabolic Panel sp3 06/05 15:15 Order name: CBC with Diff sp3 06/05 15:15 Order name: Type And Screen sp3 06/05 15:15 Order name: Troponin High Sensitivity sp3 06/05 15:15 Order name: PT-INR sp3 06/05 15:15 Order name: LFT's sp3 06/05 15:17 Order name: Humerus Right XRAY; Complete Time: 16:03 sp3 06/05 15:19 Order name: Head C Spine Mpr Wo Con; Complete Time: 16:03 EDMS 06/05 15:20 Order name: Chest Abd Pelvis Wo Con; Complete Time: 16:03 EDMS 06/05 15:24 Order name: Facial Bones W/O Con CT; Complete Time: 16:03 sp3 06/05 17:04 Order name: Hand Left 3 View XRAY 06/05 15:15 Order name: EKG; Complete Time: 15:15 sp3 06/05 15:15 Order name: Labs collected and sent sp3 06/05 15:15 Order name: EKG - Nurse/Tech sp3 06/05 15:15 Order name: NPO; Complete Time: 15:32 sp3 06/05 15:15 Order name: Wound Care; Complete Time: 17:04 sp3 06/05 16:49 Order name: Splint: Coaptation splint right arm; Complete Time: 17:40 sp3 Administered Medications: 16:32 Drug: morphine IVP or IV 4 mg IVP once over 4 mins Route: IVP; Infused Over: 4 mins; hb Site: left antecubital; 16:32 Drug: Ondansetron IVP 4 mg IVP once; over 2 minutes Route: IVP; Site: left antecubital; hb 16:51 Drug: Boostrix Tdap IM 0.5 ml IM once; as a single dose Route: IM; Site: left deltoid; hb 16:51 Drug: ceFAZolin IVPB 1 grams IVPB once Route: IVPB; Site: left antecubital; hb Disposition Summary: 06/05/24 16:56 Discharge Ordered Notes: Location: Home sp3 Condition: Stable sp3 Diagnosis - Multiple falls, closed head injury, nasal fracture, nasal laceration, right humerus sp3 fracture, facial contusions Followup: sp3 - With: Thuan Quiroz MD - When: Upon discharge from the Emergency Department - Reason: Recheck today's complaints Discharge Instructions: - Discharge Summary Sheet sp3 - Facial or Scalp Contusion sp3 - Humerus Fracture Treated With Immobilization sp3 - Facial Laceration sp3 - Nasal Fracture sp3 Forms: - Medication Reconciliation Form sp3 - Antibiotic Education sp3 - Prescription Opioid Use sp3 - Patient Portal Instructions sp3 - Leadership Thank You Letter sp3 Prescriptions: - Cephalexin 500 mg Oral Capsule - take 1 capsule ORAL route every 8 hours for 10 days; 30 capsule; Refills: 0, sp3 Product Selection Permitted - Tramadol 50 mg Oral Tablet - take 1 tablet ORAL route every 8 hours as needed; 12 tablet; Refills: 0, sp3 Product Selection Permitted Signatures: Dispatcher [employer] EDVanessa Avilez RN RN Annia Perry MD MD sp3 Corrections: (The following items were deleted from the chart) 15:16 15:15 BASIC METABOLIC PANEL+C.LAB.BRZ ordered. EDMS EDMS 15:16 15:15 CBC+H.LAB.BRZ ordered. EDMS EDMS 15:16 15:15 TYPE AND SCREEN+BB.LAB.BRZ ordered. EDMS EDMS 15:16 15:15 Troponin High Sensitivity+C.LAB.BRZ ordered. EDMS EDMS 15:16 15:15 PROTIME (+INR)+COAG.LAB.BRZ ordered. EDMS EDMS 15:16 15:15 HEPATIC FUNCTION+C.LAB.BRZ ordered. EDMS EDMS 15:17 15:15 Head C Spine Cap Wo Con+CT.RAD.BRZ ordered. EDMS EDMS
[2024-06-05 16:58] LABS: PT Prothrombin Time 12.3 SECONDS (10-13.0); Protime INR 1.08
--- NOTE | 2024-06-05 17:48 | RAD REPORT ---
EXAM: XR LEFT HAND HISTORY: Pain. Pain;Swelling COMPARISON: None TECHNIQUE: Multiple projections of the left hand submitted. FINDINGS: Prominent degenerative change first carpometacarpal joint. Advanced osteopenia. Small triqu etral fracture present with adjacent soft tissue swelling. Ununited ulnar styloid fracture. Hardware is present in the distal radius.
[2024-06-05 18:16] VITALS: TEMP 98.1
[2024-06-05 18:18] VITALS: BP 159/80; O2SAT 98
== END 2024-06-05 18:12 | disposition home or self-care (01) ==
LOC: ER 15:12
DX: S02.2XXA Fracture of nasal bones, initial encounter for closed fracture (principal); S42.354A Nondisplaced comminuted fracture of shaft of humerus, right arm, initial encounter for closed fracture; S01.21XA Laceration without foreign body of nose, initial encounter; R29.6 Repeated falls; Z23 Encounter for immunization; Z79.82 Long term (current) use of aspirin
CPT/HCPCS: 85025; 80048; 36415; 86900; 86850; 85610; 86901; 80076; 84484; 70450; 71250; 72125; 70486; 76377; 74176; 73130; 73060; 90715; 12011; J2405; J0690; J2003